=== PATIENT | female | born 1955 | race Caucasian/White ===

== ENCOUNTER → 2018-01-19 11:16 | Outpatient (CLI) | payer MEDICARE, SELFPAY ==
[2018-01-19 12:45] LABS: Rheumatoid Factor < 10.0 IU/mL (<15); Thyroid Stim Hormone (TSH) 0.94 uIU/mL (0.358-3.74)
[2018-01-19 12:48] LABS: Hemoglobin A1c 5.7 % (4.2-6.3)
[2018-01-20 09:49] LABS: Vitamin B12 591 pg/mL (211-911)
[2018-01-21 12:07] LABS: SJOGREN'S Anti-SS-A test < 0.2 AI (0.0-0.9); SJOGREN'S Anti-SS-B test < 0.2 AI (0.0-0.9)
[2018-01-21 16:06] LABS: ANTINUCLEAR ANTIBODIES DIRECT Negative (Negative)
[2018-01-22 20:08] LABS: Albumin 3.8 g/dL (2.9-4.4); Albumin, Ur 19.9 % (.); Alpha-1-Globulin, Ur 6.8 % (.); Alpha-1-Globulins 0.2 g/dL (0.0-0.4); Alpha-2-Globulins 0.8 g/dL (0.4-1.0); Alpha-2-Globulins, Ur 14.6 % (.); Beta Globulin, Ur 42.3 % (.); Cytoplasmic Ab (C-ANCA) <1:20 titer (Neg:<1:20); Gamma Globulin, Ur 16.4 % (.); Immunoglobulin A 361 mg/dL (87-352); Immunoglobulin G 1028 mg/dL (700-1600); Immunoglobulin M 47 mg/dL (26-217); M-Spike, Ur % Not Observed % (Not Observed); PROEL- TOTAL PROTEIN 7.4 g/dL (6.0-8.5); Total Protein, Ur 11.4 mg/dL (Not Estab.)
[2018-01-25 10:18] LABS: Perinuclear Ab (P-ANCA) <1:20 titer (Neg:<1:20)
== END ==
PROVIDERS: Family Provider Family Medicine; PCP Family Medicine; Visit Provider Psychiatry & Neurology Neurology
DX: E11.9 Type 2 diabetes mellitus without complications (principal); G62.9 Polyneuropathy, unspecified; M79.672 Pain in left foot; R29.898 Other symptoms and signs involving the musculoskeletal system
CPT/HCPCS: 36415; 82607; 82784; 83036; 84165; 84166; 84443; 86038; 86235; 86256; 86334; 86335; 86431

== ENCOUNTER → 2018-02-02 09:33 | Outpatient (CLI) | payer MEDICARE, SELFPAY ==
--- NOTE | 2018-02-02 06:30 | MRI_ITS ---
STUDY: MRI BRAIN WITH AND WITHOUT CONTRAST REASON FOR EXAM: Female, 62 years old. Bilateral leg weakness and right greater than left leg tingling, multiple sclerosis TECHNIQUE: Standardized multiplanar fat and water weighted pulse sequences were obtained. 7 ml of Gadavist contrast material was administered intravenously for the contrast portion of the examination. COMPARISON: None. FINDINGS: Normal size of the ventricles and extra-axial spaces for the patient's age. Normal white matter tracts of the supratentorial brain. Normal bilateral basal ganglia. Normal thalami. There is no extra-axial fluid accumulation. Normal flow voids within the major intracranial circulation suggesting patency by spin echo criteria. Normal venous enhancement. There is no enhancing intra-axial or extra-axial abnormality. Normal sella turcica, pituitary gland, infundibular stalk, optic chiasm and hypothalamus. Normal tectal plate and pineal gland. Normal midbrain, beth and medulla. Normal cerebellum. Normal basal cisterns. Normal bilateral temporal bones. Normal bilateral internal auditory canals. Bilateral lens replacements. Right sphenoid sinus disease. Normal calvarium and skull base. Normal visualized soft tissue structures. Normal visualized upper cervical spine. MRI/Brain W/WO Contrast IMPRESSION: No evidence of infarct, hemorrhage, or abnormal enhancement. No demyelinating lesions are seen. Electronically Signed: Carroll Griffith MD at 10:08 EDT Tel , Service support ,
--- NOTE | 2018-02-02 06:30 | MRI_ITS ---
STUDY: MRI CERVICAL SPINE WITH AND WITHOUT CONTRAST REASON FOR EXAM: Female, 62 years old. Bilateral leg weakness and leg tingling worse on the right TECHNIQUE: Standardized fat and water weighted pulse sequences were obtained in the sagittal and axial following I.V. administration of 7 ml of Gadavist contrast material. COMPARISON: None FINDINGS: Normal foramen magnum and brainstem-cervical cord junction. Normal craniovertebral junction. Normal anterior atlantoaxial articulation. Normal odontoid process. Normal cervical lordosis. Normal vertebral bodies and posterior osseous elements. C2-3: Normal endplates. Normal disc height, signal and morphology. Normal central canal and intervertebral neural foramina. C3-4: Normal endplates. Normal disc height, signal and morphology. Normal central canal and intervertebral neural foramina. C4-5: Normal endplates. Normal disc height, signal and morphology. Normal central canal and intervertebral neural foramina. C5-6: Normal endplates. Normal disc height, signal and morphology. Normal central canal and intervertebral neural foramina. C6-7: Disc osteophyte complex with mild central canal stenosis. C7-T1: Normal endplates. Normal disc height, signal and morphology. Normal central canal and intervertebral neural foramina. Normal cervical cord. Normal visualized soft tissue structures. MRI/Spine Cervical W/WO Contrast IMPRESSION: Degenerative disc disease at C6-7 without evidence of cord pathology or exiting nerve root impingement. No abnormal postcontrast enhancement is seen. Electronically Signed: Carroll Griffith MD at 10:06 EDT Tel , Service support ,
--- NOTE | 2018-02-02 06:30 | MRI_ITS ---
STUDY: MRI THORACIC SPINE WITH AND WITHOUT CONTRAST REASON FOR EXAM: Female, 62 years old. Bilateral leg weakness with right greater than left leg tingling TECHNIQUE: 7 ml of Gadavist was administered intravenously for the contrast portion of the examination. COMPARISON: None. FINDINGS: Normal alignment. No evidence of compression fracture. Mild diffuse spondylosis. Multiple incidental nerve root sleeve diverticula. No cord signal abnormality are seen. No abnormal intrathecal postcontrast enhancement. No evidence of nerve root impingement. Paraspinal soft tissues are unremarkable. Possible cholelithiasis. MRI/Spine Thoracic W/WO Contrast IMPRESSION: Normal alignment and mild spondylosis. No evidence of cord pathology, nerve root impingement, or abnormal postcontrast enhancement. Possible cholelithiasis. Electronically Signed: Carroll Griffith MD at 9:53 EDT Tel , Service support ,
--- NOTE | 2018-02-02 06:30 | MRI_ITS ---
STUDY: MRI LUMBAR SPINE WITHOUT CONTRAST REASON FOR EXAM: Female, 62 years old. MS, bilateral leg weakness and right greater than left leg tingling TECHNIQUE: Standardized fat and water weighted pulse sequences were obtained in the sagittal and axial planes. COMPARISON: None FINDINGS: T12-L1: Normal endplates. Normal disc height, hydration and morphology. Normal bilateral facet joints. Normal central canal and bilateral lateral recesses. Normal bilateral intervertebral neural foramina. Incidental right sided nerve root sleeve diverticulum. Normal lumbar lordosis. There is no substantial scoliosis. Normal conus medullaris that terminates at the L2 level. L1-2: Bulging annulus and central disc protrusion without compressive sequelae. L2-3: Bulging annulus without compressive sequelae. L3-4: Normal endplates. Normal disc height, hydration and morphology. Normal bilateral facet joints. Normal central canal and bilateral lateral recesses. Normal bilateral intervertebral neural foramina. L4-5: Normal endplates. Normal disc height, hydration and morphology. Normal bilateral facet joints. Normal central canal and bilateral lateral recesses. Normal bilateral intervertebral neural foramina. L5-S1: Disc desiccation. Bulging annulus and central disc protrusion with mild central canal stenosis. Incidental sacral Tarlov cyst. Normal visualized paraspinous soft tissue structures. Cholelithiasis cannot be excluded. MRI/Spine Lumbar (Routine) IMPRESSION: Mild multilevel disc disease without evidence of nerve root impingement. Possible cholelithiasis. Electronically Signed: Carroll Griffith MD at 9:49 EDT Tel , Service support ,
== END ==
PROVIDERS: Family Provider Family Medicine; PCP Family Medicine; Visit Provider Psychiatry & Neurology Neurology
DX: G35 Multiple sclerosis (principal); R29.898 Other symptoms and signs involving the musculoskeletal system
CPT/HCPCS: 70553; 72148; 72156; 72157; A9585

== ENCOUNTER → 2018-05-18 07:50 | Outpatient (CLI) | payer MEDICARE, SELFPAY ==
--- NOTE | 2018-05-18 10:57 | NEURO ---
NCS and/or EMG Patient Report Ordering Doctor: Priyanka Mcclendon DATE OF SERVICE: 05/18/18 This is a bilateral lower extremity nerve conduction study and a right lower extremity EMG performed on this 62-year-old female who says that she was diagnosed with MS approximately 19-20 years ago, this has only affected her legs however. She has had a baclofen pump placed for spasticity however she has not been on other MS medications. On examination her cranial nerves and upper extremities are normal, she has spasticity and atrophy in her lower extremities bilaterally diffusely. Bilateral lower extremity sensory and motor nerve conduction studies performed. The tibial H reflexes are suppressed bilaterally. The tibial motor and common peroneal motor F-wave latencies bilaterally are within the normal range. The common peroneal and tibial motor distal latencies are mildly prolonged with mild reduction of amplitude and mild reduction of conduction velocity. The sural sensory responses are intact. Right lower extremity needle electromyography is performed. Muscles evaluated included the extensor digitorum brevis, abductor halitosis, medial gastrocnemius, anterior tibialis, vastus lateralis and vastus medialis muscles. All muscles demonstrated normal insertional activity with absence of pathologic spontaneous activity. All muscles also demonstrated mild increase in motor unit amplitude. Impression: This is an abnormal electrophysiologic study of the lower extremities consistent with mild polyneuropathy. There is no active features.
== END ==
PROVIDERS: Family Provider Family Medicine; PCP Family Medicine; Referring Provider Psychiatry & Neurology Neurology; Visit Provider Psychiatry & Neurology Neurology
DX: R29.898 Other symptoms and signs involving the musculoskeletal system (principal)
CPT/HCPCS: 95886; 95910

== ENCOUNTER → 2018-06-23 10:31 | Outpatient (CLI) | payer MEDICARE, SELFPAY ==
[2018-06-23 12:11] LABS: Vitamin D,25 Hydroxy 19.7 ng/mL (29.95-100.01)
== END ==
PROVIDERS: Family Provider Family Medicine; PCP Family Medicine; Referring Provider Psychiatry & Neurology Neurology; Visit Provider Psychiatry & Neurology Neurology
DX: G11.4 Hereditary spastic paraplegia (principal); E55.9 Vitamin D deficiency, unspecified
CPT/HCPCS: 36415; 82306

== ENCOUNTER 2018-10-12 21:08 | Inpatient (IN) | payer MEDICARE, SELFPAY ==
[2018-10-12 21:09] VITALS: BP 157/77; PULSE 83; RESP 28; TEMP 36.4; O2SAT 99; BMI 31.5
[2018-10-12] MEDS: Ondansetron 4 MG/2 ML Vial IV (21:31)
[2018-10-12 21:32] VITALS: BP 151/81; PULSE 79; RESP 28; O2SAT 97
[2018-10-12] MEDS: morphine 8 MG/ML Syringe IV ×2 (21:32→22:33)
[2018-10-12 22:00] VITALS: BP 153/84; PULSE 79; RESP 22; O2SAT 98
--- NOTE | 2018-10-12 22:00 | RAD_ITS ---
STUDY: X-RAY - LEFT FEMUR REASON FOR STUDY: Female, 63 years old. Status post fall, pain TECHNIQUE: 5 view(s) of the femur. COMPARISON: None. FINDINGS: An acute medial angulated fracture of the distal femur with posterior displacement of the distal fragment and significant foreshortening. There is soft tissue swelling and deformity. RAD/Femur Min 2 Views IMPRESSION: Acute foreshortened comminuted fracture of the distal left femur. There is soft tissue swelling and edema. Electronically Signed: Kelly Stovall MD at 23:23 EDT Tel , Service support ,
--- NOTE | 2018-10-12 22:03 | RAD_ITS ---
STUDY: X-RAY CHEST REASON FOR EXAM: Female, 63 years old. Status post fall, fracture TECHNIQUE: Single AP portable view of the chest. Lungs are underexpanded. COMPARISON: None. FINDINGS: Underexpanded. There is limited visualization of the lung bases. There is no obvious visualized fracture. There is no demonstrated pleural abnormality. There is mild cardiac enlargement. Normal mediastinum and brock. Normal visualized pulmonary arteries. Normal visualized aortic arch and descending thoracic aorta. There are diffuse degenerative changes of the visualized thoracic spine. The visualized degenerative change of the SI joints. There is no demonstrated abnormality of the visualized soft tissue structures of the upper abdomen. RAD/Chest 1 View IMPRESSION: Underexpansion of the lungs. No visualized focal infiltrate. Electronically Signed: Kelly Stovall MD at 23:25 EDT Tel , Service support ,
[2018-10-12 22:33] LABS: Hemoglobin 13.9 g/dl (12.0-15.0); Mean Corp Hgb Conc 33.1 g/gl (32-36); Mean Corpuscular Volume 96.8 fL (81-99); Mean Platelet Vol. 9.5 fl (6.2-12.0); Platelet Count 259 K/mm3 (150-450); RBC Distribution Width CV 13.2 % (11.6-14.6); RBC Distribution Width SD 46.6 fl (35.1-43.9); Red Blood Count 4.34 M/mm3 (4.2-5.4); White Blood Count 10.9 K/mm3 (4.4-11.0)
[2018-10-12 22:35] VITALS: BP 121/65; PULSE 82; RESP 16; O2SAT 97
[2018-10-12 22:40] LABS: Anion Gap 7 (5-15); BUN 17 mg/dL (7-18); BUN/Creat Ratio 16.3 RATIO (10-20); Calcium,Total 8.3 mg/dL (8.5-10.1); Chloride 110 mmol/L (98-107); Creatinine, Serum 1.04 mg/dL (0.55-1.02); EST Glomerular Filtration Rate 57 mL/min (>60); Est Glom Filt Rate - Afr Amer 69 mL/min (>60); Estimated Creatinine Clearance 47.19 ml/min; Glucose 120 mg/dL (74-106); Potassium 3.9 mmol/L (3.5-5.1); Scan Indicated on CBC? Y/N NO; Sodium Level 141 mmol/L (136-145)
[2018-10-12 22:55] LABS: Prothrombin Time (Protime)PT. 13.1 SECONDS (11.7-14.9)
--- NOTE | 2018-10-12 22:59 | PCM.HP.STD ---
Problem List (1) Femur fracture, left Status: Acute Qualifiers: Encounter type: initial encounter Fracture morphology: comminuted History of Present Illness Date of Admission: 10/12/18 Chief Complaint: fall The patient is a 63 year old F with a significant history of multiple sclerosis and prior right lower extremity fracture with hardware who presented to the emergency department because of a fall that occurred on the same day of presentation. Patient reported that she was getting out from the toilet and because of weakness from her multiple sclerosis she fell. She reports excruciating sharp pain in the left leg. Also she reports muscle spasm in the left leg. At the emergency department x-ray showed fracture of the mid femur. Enroute to the hospital EMS placed a splint on her left lower extremity. Past Medical History Past Medical History (Chronic Problems): Chronic Problems (Last Reviewed 10/12/18 @ 23:28 by Trevor Angeles MD) Cutaneous horn (Chronic) Depression (Chronic) Osteoporosis (Chronic) Urinary incontinence (Chronic) Multiple sclerosis (Chronic) Medical History: Medical History (Last Reviewed 10/13/18 @ 06:26 by Trevor Angeles MD) Depression (Chronic) F32.9 Osteoporosis (Chronic) M81.0 Urinary incontinence (Chronic) R32 Multiple sclerosis (Chronic) G35 History of hysterectomy Z90.710 Allergies No Known Allergies Allergy (Verified 03/17/14 11:28) Home Medications: Ambulatory Orders Medication Instructions Recorded tizanidine 4 mg capsule 4 mg PO BID PRN #120 cap 04/20/18 Gabapentin [Neurontin] 300 mg PO DAILY 10/12/18 Tolterodine Tartrate [Tolterodine 4 mg PO DAILY 10/12/18 Tartrate ER] Baclofen [Lioresal Intrathecal] 10/13/18 Pramipexole Di-HCl [Mirapex] 0.5 mg PO QHS 10/13/18 Surgical History: Surgical History (Last Reviewed 10/13/18 @ 06:26 by Trevor Angeles MD) history surgery of lower extremity Rt leg, pins & rods Lives: Spouse/ Significant Other Smoking Status: Never smoker Alcohol: Occasional - *Family History Maternal Family History: Family History (Last Reviewed 10/13/18 @ 06:26 by Trevor Angeles MD) Mother Thyroid disorder Sister Thyroid disorder Paternal Family History: Family History (Last Reviewed 10/13/18 @ 06:26 by Trevor Angeles MD) Mother Thyroid disorder Sister Thyroid disorder Review of Systems Constitutional: Reports: Weakness. Denies: Chills, Fever, Weight Change HEENT: Denies: Head Aches, Sinus Congestion, Sinus Drainage Cardiovascular: Denies: Chest Pain, Palpitations Respiratory: Denies: Cough, Shortness of breath at rest, Sputum production Gastrointestinal: Denies: Abdominal Pain, Nausea, Vomiting Genitourinary: Denies: Dysuria Musculoskeletal: Reports: Leg Pain, Muscle pain. Denies: Joint Pain, Joint Tenderness Skin: Denies: Rash, Wounds Neurological: Denies: Numbness, Tingling, Focal weakness Psychiatric: Denies: Anxiety, Depression, Homicidal Ideations, Suicidal Ideations Hematologic/ Lymphatic: Denies: Easy Bruising, Easy Bleeding VTE Information - Inpt Only VTE Present on Admission: No VTE Mechan Device Prophylaxis: SCD's VTE Pharm Prophylaxis ordered?: No Patient Problems: Active and Suspected Problems (Last Reviewed 10/12/18 @ 23:28 by Trevor Angeles MD) Femur fracture, left (Acute) - Physical Exam General: Alert, Oriented x3, Cooperative HEENT: Atraumatic, PERRLA, EOMI, Normocephalic Neck: Supple, No JVD, Negative Carotid Bruits Lungs: Clear to auscultation, Normal air movement Cardiovascular: Regular rate, No murmurs Abdomen: Bowel Sounds Present, Soft, Non Tender Extremities: No edema, Capillary Refill Less than 3 Seconds Skin: No rashes, No breakdown Musculoskeletal: - - Left lower extremity in splint. Neurological: Cranial nerves II-XII grossly intact Psych/Mental Status: Normal Affect, Appropriate Vital Signs Temp Pulse Resp BP Pulse Ox 97.5 F L 83 28 H 157/77 H 99 10/12/18 21:09 10/12/18 21:09 10/12/18 21:09 10/12/18 21:09 10/12/18 21:09 Oxygen Delivery Method Room Air Weight: 83.3 kg Body Mass Index (BMI) 31.5 Laboratory Tests Past 24 Hrs 10/12/18 10/12/18 10/12/18 22:10 22:10 22:10 WBC 10.9 RBC 4.34 Hgb 13.9 Hct 42.0 MCV 96.8 MCH 32.0 MCHC 33.1 RDW 13.2 RDW Differential 46.6 H Plt Count 259 MPV 9.5 PT 13.1 INR 1.0 Sodium 141 Potassium 3.9 Chloride 110 H Carbon Dioxide 24.0 Anion Gap 7 BUN 17 Creatinine 1.04 H Estim Creat Clear Calc 47.19 Est GFR (MDRD) Af Amer 69 Est GFR (MDRD) Non-Af 57 L BUN/Creatinine Ratio 16.3 Glucose 120 H Calcium 8.3 L Blood Type Antibody Screen 10/12/18 22:10 WBC RBC Hgb Hct MCV MCH MCHC RDW RDW Differential Plt Count MPV PT INR Sodium Potassium Chloride Carbon Dioxide Anion Gap BUN Creatinine Estim Creat Clear Calc Est GFR (MDRD) Af Amer Est GFR (MDRD) Non-Af BUN/Creatinine Ratio Glucose Calcium Blood Type Pending Antibody Screen Pending Assessment/Plan All Active Problems (Last Reviewed 10/12/18 @ 23:28 by Trevor Angeles MD) Femur fracture, left (Acute) Inflamed seborrheic keratosis (Resolved) The patient is a 63 year old F with a significant history of multiple sclerosis and prior right lower extremity fracture with hardware who presented to the emergency department because of a fall and with radiographic evidence of acute foreshortened comminuted fracture of the distal left femur Acute foreshortened comminuted fracture of the distal left femur Radiograph independently reviewed shows acute Acute foreshortened comminuted fracture of the distal left femur PRN morphine for pain. PRN Toradol for pain. Her pain regimen was adjusted because of uncontrolled pain. Zofran as needed for nausea Emergency department doctor talked to Dr. Gabriel Alves, orthopedics, and he will follow patient. Orthopedic consulted. Patient has no history of cardiac disease, she has no chest pain or shortness of breath at this time. Patient is a low risk for moderate procedure. Continue immobilization of femur Multiple sclerosis Tizanidine and Neurontin continued Patient on implanted baclofen pump Tolterodine tartrate continued Restless leg Mirapex continued DVT prophylaxis SCD to right leg at this time. Consider anticoagulation after surgery. Code Visit Inpatient E&M: 90059 Init Hosp L3
--- NOTE | 2018-10-12 23:07 | ED.DCSUM_ITS ---
- ER Visit Summary Date of Service: 10/12/18 Chief Complaint: Fell in bathroom injuring left upper leg. History of Present Illness: The patient is a 63 F history of muscle spasms and prior right femur fracture with femoral mila. Patient states she was getting off the toilet and pivoting in the bathroom she fell injuring her left leg. Denies hitting her head no LOC. She is on no blood thinners. She denies any other injuries. Physical Examination: Vital signs are stable afebrile. Older female brought in by squad. Her splint on her left lower extremity. HEENT exam unremarkable. Neck nontender. Lungs clear to auscultation. Heart regular rhythm no murmur. Abdomen soft and nontender. Pelvic girdle intact. Extremities both upper and right lower extremities are nontender. Normal range of motion. Left thigh is tender to palpation. She does not remove her left leg due to pain. The lower legs nontender. She is normal DP pulse. She can wiggle her toes. She has normal touch sensation. Neurologically she is awake and alert. Test Results: X-ray of her left femur shows a midshaft left femur displaced fracture. CBC shows a white count of 10. Hemoglobin 13. Electrolytes unremarkable normal creatinine and gap. Emergency Department Course and Treatment: Patient treated with IV morphine and Zofran. Treatment Plan: I spoke to Dr. Gabriel Alves orthopedics. He will be consulted orthopedics. I have the hospitalist on page for admission. Discussed plan with family and patient. Disposition: Admission Impression: Acute fall Acute left midshaft femur fracture This note was generated with [employer] dictation software. It may contain incorrect words, spelling, and punctuation that were not noted in review of the chart prior to signing ED Disposition - Plan for ED Patient: Referrals: Aroldo Wooten, [Primary Care Provider] -
[2018-10-12 23:08] VITALS: BP 112/50; PULSE 92; RESP 18; O2SAT 96
[2018-10-12 23:44] VITALS: BP 112/50; PULSE 90; RESP 16; TEMP 36.8; O2SAT 96
--- NOTE | 2018-10-12 23:49 | ED.RN ---
after second dose of IV morphine and repositioning pt for comfort, pt finally settles down and started to doze off. O2 sats dropped to 85-88% RA, placed on 2L NC oxygen. O2 saturation increased to 95%. Pt appears drowsy yet comfortable.
[2018-10-13] VITALS (16 sets, daily range): BP systolic 95–124; BP diastolic 46–70; PULSE 73–96; RESP 14–20; TEMP 36.2–37.2; O2SAT 93–100
[2018-10-13] MEDS: Lactated Ringers 1,000 ML 75 ML IV (00:42)
[2018-10-13] MEDS: Morphine 2 MG/ML Syringe IV (00:42)
[2018-10-13] MEDS: tiZANidine HCl 2 MG Tablet 4 MG PO ×3 (00:42→22:15)
[2018-10-13] MEDS: Ketorolac 15 MG/ML Vial IV ×2 (01:20→14:46)
[2018-10-13] MEDS: Morphine 4 MG/ML Syringe 3 MG IV ×6 (02:41→20:29)
--- NOTE | 2018-10-13 05:00 | EKG12_ITS ---
Test Reason : AM EKG Blood Pressure : / mmHG Vent. Rate : 083 BPM Atrial Rate : 083 BPM P-R Int : 150 ms QRS Dur : 080 ms QT Int : 396 ms P-R-T Axes : 024 017 018 degrees QTc Int : 465 ms Normal sinus rhythm Normal ECG When compared with ECG of 14-JUN-2004 20:35, Nonspecific T wave abnormality now evident in Inferior leads Confirmed by TODD NYE, MELY ([id number]), story editor BIJAL ROUSE ([id number]) on 10/15/2018 1:56:51 PM Referred By: SUSAN Confirmed By:MELY BROOKS MD
[2018-10-13 06:13] LABS: Absolute Lymphocyte Count 3.74 X10^3/ul (0.83-4.51); Absolute Neutrophil Count 4.8 X10^3/uL (2.0-7.7); Basophil# 0.02 X10^3/uL; Basophil% 0.2 % (0-1); Eosinophil# 0.07 X10^3/uL; Eosinophils% 0.7 % (0-5); Hematocrit 38.9 % (37-47); Hemoglobin 12.4 g/dl (12.0-15.0); Lymphocyte # 3.74 X10^3/ul (4.0); Lymphocyte % 38.7 % (19-41); Mean Corp Hgb Conc 31.9 g/gl (32-36); Mean Corpuscular Hgb 31.8 pg (27.0-32.0); Mean Corpuscular Volume 99.7 fL (81-99); Mean Platelet Vol. 9.9 fl (6.2-12.0); Monocyte% 10.4 % (0-10); Neutrophil # 4.81 X10^3/uL (2.7-7.7); Neutrophil % 49.8 % (47-70); Platelet Count 253 K/mm3 (150-450); RBC Distribution Width CV 13.2 % (11.6-14.6); White Blood Count 9.7 K/mm3 (4.4-11.0)
[2018-10-13 06:18] LABS: POSITIVE COUNT NO; POSITIVE DIFFERENTIAL NO; POSITIVE MORPHOLOGY NO
[2018-10-13 06:34] LABS: Anion Gap 8 (5-15); BUN 15 mg/dL (7-18); Calcium,Total 8.1 mg/dL (8.5-10.1); Chloride 112 mmol/L (98-107); Creatinine, Serum 0.88 mg/dL (0.55-1.02); EST Glomerular Filtration Rate 69 mL/min (>60); Est Glom Filt Rate - Afr Amer 83 mL/min (>60); Estimated Creatinine Clearance 55.77 ml/min; Glucose 110 mg/dL (74-106); Potassium 4.2 mmol/L (3.5-5.1); Sodium Level 144 mmol/L (136-145)
--- NOTE | 2018-10-13 08:44 | NURSING ---
Report called to RICARDO Schultz in sx.
--- NOTE | 2018-10-13 09:30 | RAD_ITS ---
STUDY: X-RAY - LEFT FEMUR REASON FOR STUDY: Female, 63 years old. Acute spiral fracture of mid femur. TECHNIQUE: 12 intraoperative view(s) of the femur. COMPARISON: Femur, October 02, 2018. FINDINGS: The study demonstrates placement of a medullary mila through the femoral shaft with alignment of the distal diaphyseal fracture. Multiple fixation screws are seen through the upper femoral shaft and femoral condyles. Please refer to the operative report for further details. RAD/Femur Min 2 Views IMPRESSION: Surgical fixation of a femoral shaft fracture in the OR. Electronically Signed: Nilay Mann DO at 11:52 EDT Tel [phone], Service support ,
[2018-10-13] MEDS: Cefazolin 2 GM in 0.9% Normal Saline 100 ML IV (09:45)
--- NOTE | 2018-10-13 11:51 | PCM.OP.PRO ---
Procedure Report Date of Procedure: 10/13/18 Preoperative diagnosis: Comminuted left distal femoral shaft fracture Postoperative diagnosis: Same Title of operation: Retrograde left femoral nailing, reamed, locked Surgeon: Dr. Gabriel Alves Belt Cutter: Hans LAZCANO Anesthesia: General Anesthesiologist: Laura Special medications: Ancef Indications for surgery: Please refer to dictated consult note Findings: comminuted left distal femoral shaft fracture treated with [place] retrograde femoral nailing with 3 distal cross locking screws and 1 proximal cross locking screw in dynamic mode Surgical JALEESA, miller first, was utilized throughout the entire procedure. She help with patient positioning holding of limb, Bowsher for nail placement, fracture reduction, placement of guidewire, placement of cross locking screws, maintenance of fracture reduction throughout, wound closure, bandage application, patient transfer. Without certified surgical technician, surgical time would have been increased, surgical outcome could have been less optimal. Procedure: Patient was taken to the OR and transferred to the OR table. Appropriate timeouts were performed. General anesthetic was administered. IV antibiotic given. Fluoroscopy was brought in. NON Operative lower extremity had JULIA hose and SCD on throughout. Nonoperative limb was padded and taped to the bed. Operative lower extremity was prepped padded and draped in usual orthopedic sterile fashion for the procedure. Longitudinal incision was made just to the medial side of the patella coming down towards the knee joint. Full-thickness skin flaps are raised on the patellar tendon. Medial parapatellar arthrotomy carried out. Knee fluid was evacuated. Careful dissection took us to the intercondylar notch. Guidepin was placed from the distal femur into the femoral canal verified in good position under AP and lateral fluoroscopic imaging. We did ream over that with the drill. Slightly bent ball-tipped guide mila was placed from the distal femoral hole to the fracture site. Again with the help of the loan officer assistant fracture was reduced and ultimately the guide mila was placed into the proximal femur to the level of the lesser trochanter. This was verified radiographically. We measured the length of our mila. We then reamed starting with a 10 mm reamer, reaming up to size 13.5. We decided on a 12 mm nail of the appropriate length. This was placed over the guidepin with the help of the loan officer assistant. Limb was in good alignment and rotation with this. We then used the outrigger device to place our distal cross locking screws once the guide mila was removed, and we verified good position of the mila in the bone. 3 distal locking screws were placed under standard technique. Each had good position in the bone in good length and purchase. This was verified radiographically. We then did an AP cross locking screw in dynamic mode with a freehand technique. We verified the position of the screw AP and lateral x-rays. At this point we had removed the distal targeting device and placed a distal cap screw, locking it down tightly. He verified that the distal nail was not sticking out into the joint. Final set of x-rays have been taken and saved. Wounds were thoroughly irrigated. Arthrotomy was repaired with a #1 Vicryl in a [id number] fashion. Inverted 2-0 Vicryl and skin sheela then utilized. Puncture wounds closed with inverted 2-0 Vicryl and sheela. Xeroform 4 x 4's ABD applied with Stanton wrap. She was awoken from her anesthetic and transferred back to her own bed in recovery room in satisfactory condition. This note was generated with [employer] software. It may contain incorrect words, spelling, and punctuation that were not noted in checking the note before signing.
--- NOTE | 2018-10-13 11:54 | PRO.PCM_ITS ---
Procedure Report Date of Procedure: 10/13/18 Preoperative diagnosis: Comminuted left distal femoral shaft fracture Postoperative diagnosis: Same Title of operation: Retrograde left femoral nailing, reamed, locked Surgeon: Dr. Gabriel Alves Drill Instructor: Hans LAZCANO Anesthesia: General Anesthesiologist: Laura Special medications: Ancef Indications for surgery: Please refer to dictated consult note Findings: comminuted left distal femoral shaft fracture treated with [place] retrograde femoral nailing with 3 distal cross locking screws and 1 proximal cross locking screw in dynamic mode Surgical JALEESA, staff assistant, was utilized throughout the entire procedure. She help with patient positioning holding of limb, Bowsher for nail placement, fracture reduction, placement of guidewire, placement of cross locking screws, maintenance of fracture reduction throughout, wound closure, bandage application, patient transfer. Without radiology practitioner assistant, surgical time would have been increased, surgical outcome could have been less optimal. Procedure: Patient was taken to the OR and transferred to the OR table. Appropriate timeouts were performed. General anesthetic was administered. IV antibiotic given. Fluoroscopy was brought in. NON Operative lower extremity had JULIA hose and SCD on throughout. Nonoperative limb was padded and taped to the bed. Operative lower extremity was prepped padded and draped in usual orthopedic sterile fashion for the procedure. Longitudinal incision was made just to the medial side of the patella coming down towards the knee joint. Full-thickness skin flaps are raised on the patellar tendon. Medial parapatellar arthrotomy carried out. Knee fluid was evacuated. Careful di ssection took us to the intercondylar notch. Guidepin was placed from the distal femur into the femoral canal verified in good position under AP and lateral fluoroscopic imaging. We did ream over that with the drill. Slightly bent ball-tipped guide mila was placed from the distal femoral hole to the fracture site. Again with the help of the senior office assistant fracture was reduced and ultimately the guide mila was placed into the proximal femur to the level of the lesser trochanter. This was verified radiographically. We measured the length of our mila. We then reamed starting with a 10 mm reamer, reaming up to size 13.5. We decided on a 12 mm nail of the appropriate length. This was placed over the guidepin with the help of the senior office assistant. Limb was in good alignment and rotation with this. We then used the outrigger device to place our distal cross locking screws once the guide mila was removed, and we verified good position of the mila in the bone. 3 distal locking screws were placed under standard technique. Each had good position in the bone in good length and purchase. This was verified radiographically. We then did an AP cross locking screw in dynamic mode with a freehand technique. We verified the position of the screw AP and lateral x-rays. At this point we had removed the distal targeting device and placed a distal cap screw, locking it down tightly. He verified that the distal nail was not sticking out into the joint. Final set of x-rays have been taken and saved. Wounds were thoroughly irrigated. Arthrotomy was repaired with a #1 Vicryl in a [id number] fashion. Inverted 2-0 Vicryl and skin sheela then utilized. Puncture wounds closed with inverted 2-0 Vicryl and sheela. Xeroform 4 x 4's ABD applied with Stanton wrap. She was awoken from her anesthetic and transferred back to her own bed in recovery room in satisfactory condition. This note was generated with [employer] dictation software. It may contain incorrect words, spelling, and punctuation that were not noted in checking the note before signing.
--- NOTE | 2018-10-13 11:54 | PCM.CONS.GEN ---
Reason for Consult Date of Consultation: 10/13/18 History of Present Illness: The patient is a 63 year old female with a history of severe multiple sclerosis. She is basically nonambulatory. She does stand to help with transferring. She has had previous right femoral fracture treated by Dr. Garcia. Patient was at earlier this morning when she stood from the toilet twisted and her left femur broke as she fell. Was having no pain there before. Due to pain swelling and deformity she was brought to the hospital. Diagnosed with a distal femoral shaft fracture. Admitted to the medical service. Orthopedics appropriately consulted. [] Past Medical History Past Medical History (Chronic Problems): Chronic Problems (Last Reviewed 10/13/18 @ 06:26 by Trevor Angeles MD) Cutaneous horn (Chronic) Depression (Chronic) Osteoporosis (Chronic) Urinary incontinence (Chronic) Multiple sclerosis (Chronic) Medical History: Medical History (Last Reviewed 10/13/18 @ 06:26 by Trevor Angeles MD) Depression (Chronic) F32.9 Osteoporosis (Chronic) M81.0 Urinary incontinence (Chronic) R32 Multiple sclerosis (Chronic) G35 History of hysterectomy Z90.710 Allergies No Known Allergies Allergy (Verified 03/17/14 11:28) Home Medications: Ambulatory Orders Medication Instructions Recorded tizanidine 4 mg capsule 4 mg PO BID PRN #120 cap 04/20/18 Gabapentin [Neurontin] 300 mg PO DAILY 10/12/18 Tolterodine Tartrate [Tolterodine 4 mg PO DAILY 10/12/18 Tartrate ER] Baclofen [Lioresal Intrathecal] 10/13/18 Pramipexole Di-HCl [Mirapex] 0.5 mg PO QHS 10/13/18 Surgical History: Surgical History (Last Reviewed 10/13/18 @ 06:26 by Trevor Angeles MD) history surgery of lower extremity Rt leg, pins & rods Lives: Spouse/ Significant Other Smoking Status: Never smoker Alcohol: Occasional - *Family History Maternal Family History: Family History (Last Reviewed 10/13/18 @ 06:26 by Trevor Angeles MD) Mother Thyroid disorder Sister Thyroid disorder Paternal Family History: Family History (Last Reviewed 10/13/18 @ 06:26 by Trevor Angeles MD) Mother Thyroid disorder Sister Thyroid disorder Patient Problems: Active and Suspected Problems (Last Reviewed 10/13/18 @ 06:26 by Trevor Angeles MD) Femur fracture, left (Acute) Objective: Left lower extremity had a knee immobilizer extending to the upper thigh and lower leg. She could gently move the toes and ankle. She has some weakness associated with her underlying disease process. Distal pulses are intact. Right lower extremity had no pain. Left lower extremity had pain at the thigh. Vital signs and laboratory work reviewed Case had been discussed with the ER physician Complete review of systems performed with patient and her . Consistent with her multiple sclerosis and chronic lower extremity pain. Negative for any new recent changes with eyes ears nose or throat heart or lungs bowel or bladder otherwise X-rays shows a distal femoral shaft comminuted fracture displaced. Fracture does not seem to extend into the knee joint. - Physical Exam Vital Signs Temp Pulse Resp BP Pulse Ox 98.4 F 80 14 113/53 L 96 10/13/18 07:39 10/13/18 07:39 10/13/18 07:39 10/13/18 07:39 10/13/18 07:39 Oxygen Flow Rate (L/min) 2 Oxygen Delivery Method Nasal Cannula Weight: 79.379 kg Body Mass Index (BMI) 30.0 Intake and Output for Last 24 Hours 10/11/18 10/12/18 10/13/18 23:59 23:59 23:59 Output Total 1050 / 1050 Balance -1050 / -1050 Laboratory Tests Past 24 Hrs 10/12/18 10/12/18 10/12/18 22:10 22:10 22:10 WBC 10.9 RBC 4.34 Hgb 13.9 Hct 42.0 MCV 96.8 MCH 32.0 MCHC 33.1 RDW 13.2 RDW Differential 46.6 H Plt Count 259 MPV 9.5 Immature Gran % (Auto) Neut % (Auto) Lymph % (Auto) [place] % (Auto) Eos % (Auto) Baso % (Auto) Absolute Neuts (auto) Absolute Lymphs (auto) Total Counted PT 13.1 INR 1.0 Sodium 141 Potassium 3.9 Chloride 110 H Carbon Dioxide 24.0 Anion Gap 7 BUN 17 Creatinine 1.04 H Estim Creat Clear Calc 47.19 Est GFR (MDRD) Af Amer 69 Est GFR (MDRD) Non-Af 57 L BUN/Creatinine Ratio 16.3 Glucose 120 H Calcium 8.3 L Blood Type Antibody Screen 10/12/18 10/13/18 10/13/18 22:10 05:30 05:30 WBC 9.7 RBC 3.90 L Hgb 12.4 Hct 38.9 MCV 99.7 H MCH 31.8 MCHC 31.9 L RDW 13.2 RDW Differential 47.0 H Plt Count 253 MPV 9.9 Immature Gran % (Auto) 0.200 Neut % (Auto) 49.8 Lymph % (Auto) 38.7 [place] % (Auto) 10.4 H Eos % (Auto) 0.7 Baso % (Auto) 0.2 Absolute Neuts (auto) 4.8 Absolute Lymphs (auto) 3.74 Total Counted Not Reportable PT INR Sodium 144 Potassium 4.2 Chloride 112 H Carbon Dioxide 24.0 Anion Gap 8 BUN 15 Creatinine 0.88 Estim Creat Clear Calc 55.77 Est GFR (MDRD) Af Amer 83 Est GFR (MDRD) Non-Af 69 BUN/Creatinine Ratio 17.0 Glucose 110 H Calcium 8.1 L Blood Type O POSITIVE Antibody Screen NEGATIVE Assessment/Plan All Active Problems (Last Reviewed 10/13/18 @ 06:26 by Trevor Angeles MD) Femur fracture, left (Acute) Inflamed seborrheic keratosis (Resolved) Left distal femoral shaft fracture. Diagnosis and treatment options discussed with patient and her . They would like to proceed with surgical internal fixation, retrograde femoral nailing. Risk of surgery including but not limited to from operative or postoperative complications. Risk of anesthetic complications such as heart attacks, strokes, seizures, or . Risk of infections. Risk of damage to nerves arteries tendons. Risk of inadvertent fractures or dislocations. Risk of bone or wound healing complications. Possibility of nonunion malunion pain stiffness weakness. Possible need for further surgery such as hardware removal. Risk of DVT PE and other potential complications could lead to or disability explained. No guarantees were stated or implied. All of their questions were answered. Appropriate informed consent was obtained and signed for surgical intervention. Ancef will be used for perioperative antibiotic. We will plan on Xarelto for postoperative DVT prevention. Continue medical evaluation and treatment of other underlying conditions per hospitalist service This note was generated with [employer] software. It may contain incorrect words, spelling, and punctuation that were not noted in checking the note before signing.
--- NOTE | 2018-10-13 13:38 | PN_ITS ---
Patient Problems: Active and Suspected Problems (Last Reviewed 10/13/18 @ 06:26 by Trevor Angeles MD) Femur fracture, left (Acute) Subjective: Patient was taken for left femur fracture ORIF in the OR in the morning. Patient was seen and examined in PACU. Anesthesiologist called me that patient is not able to flex right hip or right knee after surgery. Patient can wiggle toes of both lower extremity. Left lower extremity is in immobilizer. As per the anesthesiologist, Dr. Alves thinks it is not positional during surgery Discussed with the neurologist Dr. Mcclendon. Patient has history of MS for [address] Mackenzie for baclofen pump refill. Patient baseline physical status is wheelchair-bound. Patient does not uses walker. As per the patient, Dr. Mackenzie refills her baclofen pain pump but she has not seen him physically recently for 3 years Vitals/I&O's: Vital Signs Temp Pulse Resp BP Pulse Ox 97.1 F L 73 16 100/50 L 96 10/13/18 12:04 10/13/18 13:15 10/13/18 13:15 10/13/18 13:15 10/13/18 13:15 Oxygen Flow Rate (L/min) 3 Oxygen Delivery Method Nasal Cannula Weight: 175 lb Body Mass Index (BMI) 30.0 Intake and Output for Last 24 Hours 10/11/18 10/12/18 10/13/18 23:59 23:59 23:59 Output Total 1050 / 1050 Balance -1050 / -1050 General: Alert, Oriented x3, Cooperative HEENT: Atraumatic, PERRLA, EOMI, Normocephalic Oral: Dry Mucosa Neck: Supple, No JVD, Negative Carotid Bruits Lungs: Clear to auscultation, No rhonchi, No wheeze, No rales, Diminished - Air entry is diminished in both lung bases Cardiovascular: Regular rate, Regular Rhythm, Normal S1, Normal S2, No murmurs Abdomen: Bowel Sounds Present, Soft, Non Tender, Non-Distended Extremities: Capillary Refill Less than 3 Seconds, Edema, Tenderness - Left lower extremity in immobilizer. Surgical dressing and Stanton wrap bandage present. Skin: No rashes, No breakdown Musculoskeletal: Arthritic Changes, Muscle Wasting, Tenderness Lymphatic: No Cervical, Supraclavicular, or Inguinal Adenopathy Neurological: Cranial nerves II-XII grossly intact, - - Chronic bilateral lower extremity weakness. Wheelchair-bound. Patient can wiggle toes. DTRs hyporeflexive, 1+. Right lower extremity not able to flex at hip or knee joints. Power is 1-2/5 at the major joints and right lower extremity Psych/Mental Status: Normal Affect, Appropriate Laboratory Results 10/12/18 22:10: WBC 10.9, RBC 4.34, Hgb 13.9, Hct 42.0, MCV 96.8, MCH 32.0, MCHC 33.1, RDW 13.2, RDW Differential 46.6 H, Plt Count 259, MPV 9.5 10/12/18 22:10: PT 13.1, INR 1.0 10/12/18 22:10: Sodium 141, Potassium 3.9, Chloride 110 H, Carbon Dioxide 24.0, Anion Gap 7, BUN 17, Creatinine 1.04 H, Estim Creat Clear Calc 47.19, Est GFR (MDRD) Af Amer 69, Est GFR (MDRD) Non-Af 57 L, BUN/Creatinine Ratio 16.3, Glucose 120 H, Calcium 8.3 L 10/12/18 22:10: Blood Type O POSITIVE, Antibody Screen NEGATIVE 10/13/18 05:30: WBC 9.7, RBC 3.90 L, Hgb 12.4, Hct 38.9, MCV 99.7 H, MCH 31.8, MCHC 31.9 L, RDW 13.2, RDW Differential 47.0 H, Plt Count 253, MPV 9.9, Immature Gran % (Auto) 0.200, Neut % (Auto) 49.8, Lymph % (Auto) 38.7, [place] % (Auto) 10.4 H, Eos % (Auto) 0.7, Baso % (Auto) 0.2, Absolute Neuts (auto) 4.8, Absolute Lymphs (auto) 3.74, Total Counted Not Reportable 10/13/18 05:30: Sodium 144, Potassium 4.2, Chloride 112 H, Carbon Dioxide 24.0, Anion Gap 8, BUN 15, Creatinine 0.88, Estim Creat Clear Calc 55.77, Est GFR (MDRD) Af Amer 83, Est GFR (MDRD) Non-Af 69, BUN/Creatinine Ratio 17.0, Glucose 110 H, Calcium 8.1 L Current Medications Acetaminophen (Tylenol) 650 mg PO Q6H PRN PRN PRN Reason: PAIN Duloxetine HCl (Cymbalta) 30 mg PO DAILY [facility] Gabapentin (Neurontin) 300 mg PO DAILYCM [facility] Cefazolin Sodium () 1 gm in 50 mls @ 150 mls/hr IV Q6H DAISY Stop: 10/14/18 04:19 Ketorolac Tromethamine (Toradol) 15 mg IV Q6H PRN PRN PRN Reason: PAIN Stop: 10/18/18 00:36 Last Admin: 10/13/18 01:20 Dose: 15 mg Magnesium Hydroxide (Milk Of Magnesia) 30 ml PO DAILY PRN PRN PRN Reason: Constipation Morphine Sulfate () 3 mg IV Q2H PRN PRN PRN Reason: SEVERE PAIN (6-10/10) Last Admin: 10/13/18 09:11 Dose: 3 mg Ondansetron HCl (Zofran) 4 mg IV Q6H PRN PRN PRN Reason: NAUSEA/VOMITING Pramipexole Dihydrochloride (Mirapex) 0.5 mg PO DAILY@2200 [facility] Rivaroxaban (Xarelto) 10 mg PO DAILY@0600 [facility] Sodium Chloride () 5 - 15 ml IV UD PRN PRN Reason: SALINE FLUSH Tizanidine HCl (Zanaflex) 4 mg PO BID PRN PRN PRN Reason: muscle spasticity Last Admin: 10/13/18 00:42 Dose: 4 mg Tolterodine Tartrate (Detrol La) 4 mg PO DAILY [facility] Medical Necessity - Tobacco Use Smoking Status: Never smoker Assessment/Plan All Active Problems (Last Reviewed 10/13/18 @ 06:26 by Trevor Angeles MD) Femur fracture, left (Acute) Inflamed seborrheic keratosis (Resolved) The patient is a 63 year old F with a significant history of multiple sclerosis and prior right lower extremity fracture with hardware who [facility] she had a fall and with radiographic evidence of acute foreshortened comminuted fracture of the distal left femur. Patient has MS for last 19 years and is wheelchair-bound. 1. Acute foreshortened comminuted fracture of the distal left femur shaft with postoperative weakness of right lower extremity with baseline paraparesis secondary to MS: X-ray shows acute foreshortened comminuted fracture of the distal left femur. Patient was treated with morphine and Toradol as needed. Orthopedic surgeon Dr. Alves was consulted. Patient had retrograde left femoral nailing, reamed and locked. Postoperatively in PACU, patient felt weakness of right lower extremity not able to flex at hip and knee joints. Discussed with the patient about the baseline. Patient follows Dr. Mackenzie for baclofen pump refill. Patient baseline physical status is wheelchair-bound. Patient does not uses walker. As per the patient, Dr. Mackenzie refills her baclofen pain pump but she has not seen him physically recently for 3 years. Discussed with the neurologist Dr. Mcclendon and he thinks it is mainly positional and anesthetic medications. Patient had Precedex, fentanyl, D ilaudid, Versed and propofol anesthetic agents. Discussed with anesthesiologist. Physical therapy. Wait and watch. Hold baclofen pain pump. 2. Multiple sclerosis with paraparesis: As mentioned above patient baseline is wheelchair bound. I did not assess preoperative muscle strength of right lower extremity and patient was in OR in art therapist. Patient is not on MS specific medication but gabapentin, pramipexole and tizanidine as needed. On baclofen pain pump. 3. Restless leg Mirapex continued DVT prophylaxis SCD to right leg at this time. On Xarelto 10 mg daily. Management discussed with the patient in PACU. Code Visit Inpatient E&M: [id number] [place] [id number]
[2018-10-13] MEDS: DULoxetine Hcl 30 MG Capsule PO (15:29)
[2018-10-13] MEDS: Tolterodine Tartrate 4 MG CAP.SA PO (15:29)
[2018-10-13] MEDS: Gabapentin 300 MG Capsule PO (15:29)
--- NOTE | 2018-10-13 15:58 | NURSING ---
[employer] CALLED IN REGARD OF BACLOFEN PUMP PER MD REQUEST TO VERIFY PUMP IS ON. PER [employer], LOCAL REP PAGED TO COME INTERROGATE JIGNESH.
--- NOTE | 2018-10-13 16:07 | NURSING ---
BRAXTON, LOCAL [employer] AGENT, CALLED REGARDING BACLOFEN PUMP. PER BRAXTON, ONLY WAY PUMP IS TURNED OFF WOULD BE BY MRI. PT DID NOT RECEIVE MRI WITH THIS ADMISSION. BRAXTON STATES IF FAMILY HAS ANY FURTHER QUESTIONS, WOULD NEED TO CONTACT MD REGULATING PUMP. WILL RELAY INFORMATION TO FAMILY/PATIENT.
[2018-10-13] MEDS: Cefazolin 1 GM/50 ML BAG IV ×2 (16:36→22:15)
[2018-10-13] MEDS: Acetaminophen 325 MG Tablet 650 MG PO (18:38)
[2018-10-13] MEDS: Pramipexole Di-HCl 0.5 MG Tablet PO (22:15)
[2018-10-14] MEDS: Morphine 4 MG/ML Syringe 3 MG IV ×3 (02:11→15:10)
[2018-10-14] MEDS: Ketorolac 15 MG/ML Vial IV ×3 (02:26→16:43)
[2018-10-14] MEDS: Cefazolin 1 GM/50 ML BAG IV (05:06)
[2018-10-14] MEDS: Rivaroxaban 10 MG Tablet PO (05:07)
[2018-10-14 05:32] LABS: Hematocrit 35.1 % (37-47); Hemoglobin 10.9 g/dl (12.0-15.0); Mean Corp Hgb Conc 31.1 g/gl (32-36); Mean Corpuscular Hgb 31.8 pg (27.0-32.0); Mean Corpuscular Volume 102.3 fL (81-99); Mean Platelet Vol. 9.5 fl (6.2-12.0); Platelet Count 204 K/mm3 (150-450); RBC Distribution Width CV 13.2 % (11.6-14.6); RBC Distribution Width SD 48.8 fl (35.1-43.9); Red Blood Count 3.43 M/mm3 (4.2-5.4)
[2018-10-14 05:34] LABS: Scan Indicated on CBC? Y/N NO
[2018-10-14 05:57] LABS: Anion Gap 5 (5-15); BUN 8 mg/dL (7-18); BUN/Creat Ratio 9.8 RATIO (10-20); Calcium,Total 7.7 mg/dL (8.5-10.1); Chloride 109 mmol/L (98-107); Creatinine, Serum 0.81 mg/dL (0.55-1.02); EST Glomerular Filtration Rate 75 mL/min (>60); Est Glom Filt Rate - Afr Amer 91 mL/min (>60); Estimated Creatinine Clearance 60.59 ml/min; Glucose 118 mg/dL (74-106); Potassium 4.4 mmol/L (3.5-5.1); Sodium Level 141 mmol/L (136-145)
[2018-10-14 07:05] VITALS: O2SAT 96
[2018-10-14 08:30] VITALS: BP 99/54; PULSE 88; RESP 16; TEMP 36.8; O2SAT 96
[2018-10-14] MEDS: DULoxetine Hcl 30 MG Capsule PO (08:34)
[2018-10-14] MEDS: Tolterodine Tartrate 4 MG CAP.SA PO (08:34)
[2018-10-14] MEDS: Gabapentin 300 MG Capsule PO (08:34)
[2018-10-14] MEDS: tiZANidine HCl 2 MG Tablet 4 MG PO ×2 (08:45→16:43)
--- NOTE | 2018-10-14 10:30 | CASEMGMT ---
RICARDO OSEI Face to Face with patient for initial transition planning/care coordination assessment. RICARDO OSEI introduced self and role at [facility]. Patient lying in bed, alert and oriented, at bedside. Patient willing to participate in assessment and is able to answer all questions appropriately. Care providers, pharmacy, and demographics verified. Patient wishes to discharge to SNF with [facility] as their first choice. RICARDO OSEI provided list of SNFs that are in-network with patient's insurance and asked for 2 more SNF choices should TCU not be available. Patient states she has no further needs or concerns at this time. MARIANNE Haro updated regarding requests for SNF and TCU being first choice. PCP: Aroldo Wooten Specialists: Demetri, back pain specialist for Baclofen pump; [place] neurologist Preferred Pharmacy: [facility] Insurance: [employer] [facility] Prescription Benefit: yes Living Will/HPOA: yes [place] Abad LNOK: Living Arrangements: Patient lives with in 2 story home with bedroom on second floor and bath on first floor. Patietn is independent with self care, assists at times. Transportation: , family DME/HHC: Patient has tub bench, raised toilet seat, lift chair, grab bars, walker, wheelchair, stair lift at home. Patient has previously been to [facility], denies any recent HHC but had it 14 years ago. Disposition Plan: Patient to discharge to SNF pending precert. Rayne TOMPKINS, RN, CM
--- NOTE | 2018-10-14 11:06 | CASEMGMT ---
Social Work Note RN SEA Umanzor updated this worker that pt's first choice for SNF is TCU. SW placed a call to Ayala with TCU/[facility]. Ayala states TCU is not in network with pt's insurance. SW to follow up with pt today to determine pt's second choice for SNF. Plan: SNF pending acceptance and pre-cert Rayne Haro HOUSE WORKER, CAR DESIGNER
[2018-10-14] MEDS: Acetaminophen 325 MG Tablet 650 MG PO (11:32)
--- NOTE | 2018-10-14 12:07 | CASEMGMT ---
Addendum entered by Rayne Haro 10/14/18 13:46: SW checked back in with pt and pt's in regards to SNF placement. Pt states that her left to go visit nursing homes. SW informed pt that this worker will check back in with pt before this worker leaves to see if pt's is back at [facility] and has options for SNF. Pt states understanding. Original Note: Social Work Note SW updated pt and pt's Carroll that TCU is not in network with pt's insurance. Pt and Carroll encouraged to continue to review list to determine second and third choice for SNF. SW provided pt and Carroll with Medicare ratings. SW informed pt and Carroll that this worker will check back in later today in regards to options for SNF. Plan: SNF pending acceptance and pre-cert Rayne Haro SILVERWARE CLEANER, AIRLINE COUNTER AGENT
--- NOTE | 2018-10-14 12:38 | PCM.PN.HOSP ---
Patient Problems: Active and Suspected Problems (Last Reviewed 10/13/18 @ 06:26 by Trevor Angeles MD) Femur fracture, left (Acute) Leg weakness (Acute) Subjective: Patient has chronic bilateral lower extremity weakness, paraplegia on wheelchair. No improvement in right leg flexion. Patient stated usually she can move her lower extremities horizontally on bed. She was able to stand up with with weight put on walker or toilet bar Vitals/I&O's: Vital Signs Temp Pulse Resp BP Pulse Ox 98.3 F 88 16 99/54 L 96 10/14/18 08:30 10/14/18 08:30 10/14/18 08:30 10/14/18 08:30 10/14/18 08:30 Oxygen Flow Rate (L/min) 2 Oxygen Delivery Method Nasal Cannula Weight: 175 lb Body Mass Index (BMI) 30.0 Intake and Output for Last 24 Hours 10/12/18 10/13/18 10/14/18 23:59 23:59 23:59 Intake Total 2213.4 / 2213.4 856 / 856 Output Total 1974 1200 / 1200 Balance 238.4 / 238.4 -344 / -344 General: Alert, Oriented x3, Cooperative HEENT: Atraumatic, PERRLA, EOMI, Normocephalic Neck: Supple, No JVD, Negative Carotid Bruits Lungs: Clear to auscultation, No rhonchi, No wheeze, No rales, Diminished Cardiovascular: Regular rate, Regular Rhythm, Normal S1, Normal S2, No murmurs Abdomen: Bowel Sounds Present, Soft, Non Tender, Non-Distended Extremities: No edema, Capillary Refill Less than 3 Seconds Skin: No rashes, No breakdown Musculoskeletal: Arthritic Changes, Muscle Wasting, Tenderness - Left lower extremity has surgical dressing with Stanton wrap bandage. Lymphatic: No Cervical, Supraclavicular, or Inguinal Adenopathy Neurological: Cranial nerves II-XII grossly intact, - - Chronic bilateral lower extremity weakness. Wheelchair-bound. Patient can wiggle toes. DTRs hyporeflexive, 1+. Right lower extremity not able to flex at hip or knee joints. Power is 1-2/5 at the major joints and right lower extremity. Left lower extremity immobilized after surgery Psych/Mental Status: Normal Affect, Appropriate Laboratory Results 10/14/18 05:22: WBC 9.0, RBC 3.43 L, Hgb 10.9 L, Hct 35.1 L, MCV 102.3 H, MCH 31.8, MCHC 31.1 L, RDW 13.2, RDW Differential 48.8 H, Plt Count 204, MPV 9.5 10/14/18 05:22: Sodium 141, Potassium 4.4, Chloride 109 H, Carbon Dioxide 27.0, Anion Gap 5, BUN 8, Creatinine 0.81, Estim Creat Clear Calc 60.59, Est GFR (MDRD) Af Amer 91, Est GFR (MDRD) Non-Af 75, BUN/Creatinine Ratio 9.8 L, Glucose 118 H, Calcium 7.7 L Current Medications Acetaminophen (Tylenol) 650 mg PO Q6H PRN PRN PRN Reason: PAIN Last Admin: 10/14/18 11:32 Dose: 650 mg Duloxetine HCl (Cymbalta) 30 mg PO DAILY [facility] Last Admin: 10/14/18 08:34 Dose: 30 mg [facility] Admin: 10/14/18 08:34 Dose: 300 mg Ketorolac Tromethamine (Toradol) 15 mg IV Q6H PRN PRN PRN Reason: PAIN Stop: 10/18/18 00:36 Last Admin: 10/14/18 08:34 Dose: 15 mg Magnesium Hydroxide (Milk Of Magnesia) 30 ml PO DAILY PRN PRN PRN Reason: Constipation Morphine Sulfate () 3 mg IV Q2H PRN PRN PRN Reason: SEVERE PAIN (6-10/10) Last Admin: 10/14/18 05:51 Dose: 3 mg Ondansetron HCl (Zofran) 4 mg IV Q6H PRN PRN PRN Reason: NAUSEA/VOMITING Oxycodone HCl (Oxyir) 5 mg PO Q4H PRN PRN PRN Reason: SEVERE PAIN (6-10/10) Pramipexole Dihydrochloride (Mirapex) 0.5 mg PO DAILY@2200 [facility] Last Admin: 10/13/18 22:15 Dose: 0.5 mg Rivaroxaban (Xarelto) 10 mg PO DAILY@0600 [facility] Last Admin: 10/14/18 05:07 Dose: 10 mg Sodium Chloride () 5 - 15 ml IV UD PRN PRN Reason: SALINE FLUSH Tizanidine HCl (Zanaflex) 4 mg PO BID PRN PRN PRN Reason: muscle spasticity Last Admin: 10/14/18 08:45 Dose: 4 mg Tolterodine Tartrate (Detrol La) 4 mg PO DAILY [facility] Last Admin: 10/14/18 08:34 Dose: 4 mg Medical Necessity - Tobacco Use Smoking Status: Never smoker Assessment/Plan All Active Problems (Last Reviewed 10/13/18 @ 06:26 by Trevor Angeles MD) Femur fracture, left (Acute) Leg weakness (Acute) Inflamed seborrheic keratosis (Resolved) The patient is a 63 year old F with a significant history of multiple sclerosis and prior right lower extremity fracture with hardware who [facility] after she had a trivial fall from walker and with radiographic evidence of acute foreshortened comminuted fracture of the distal left femur. Patient has MS for last 19 years and is wheelchair-bound. 1. 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 Patient was treated with morphine and Toradol as needed. Orthopedic surgeon Dr. Alves was consulted. Patient had retrograde left femoral nailing, reamed and locked. Postoperatively in PACU, patient felt weakness of right lower extremity not able to flex at hip and knee joints. Patient follows Dr. Mackenzie for baclofen pump refill. Discussed with the neurologist, Dr. Mcclendon. He put an order for MRI C-spine and lumbar spine. Patient had nerve conduction studies in April 2018 which was reported as mild polyneuropathy with absence of pathology for spontaneous activity. She does not have MS that she had extensive workup by Dr. Mcclendon including MRI brain, cervical thoracic and lumbar spine MRI in January 2018. Currently on Zanaflex. Physical therapy. Wait and watch. Hold baclofen pain pump. 2. Spastic paraplegia : As mentioned above patient baseline is wheelchair bound. Continue gabapentin, pramipexole and tizanidine as needed. Patient refills baclofen pump from Dr. Mackenzie. 3. Restless leg Mirapex continued DVT prophylaxis SCD to right leg at this time. On Xarelto 10 mg daily. Clinical evaluation, findings and management discussed with the patient and her near the bedside. Code Visit Inpatient E&M: 84045 Subs Hosp L2
[2018-10-14 13:59] VITALS: BP 104/51; PULSE 82; RESP 16; TEMP 37; O2SAT 96
[2018-10-14] MEDS: oxyCODONE 5 MG Tablet PO ×2 (14:03→21:46)
--- NOTE | 2018-10-14 15:00 | CASEMGMT ---
Social Work Note SW spoke with pt and pt's Carroll regarding SNF. Carroll states he would like referral sent to [facility], pt agreeable to referral. SW explained referral and pre-cert process. Pt and Carroll state understanding. MARIANNE placed a call to Lana at [facility] and faxed referral. Lana left this worker a message stating she is able to accept and will submit for pre-cert. Plan: [facility] pending pre-cert Rayne Haro MSW, STEAM CRANE OPERATOR
--- NOTE | 2018-10-14 15:00 | PCM.CONS.GEN ---
Problem List (1) Spastic paraparesis Status: Chronic (2) Leg weakness Status: Acute Reason for Consult Date of Consultation: 10/14/18 Reason for Consultation: Leg weakness post surgery. History of Present Illness: The patient is a 63 year old F PMH RLS, spastic paraparesis, neuropathy admitted status post fall found to have left distal femoral shaft fracture status post retrograde left femoral nailing, ORIF by Dr. Alves on 10/13/2018 following which it was documented that patient was unable to flex right hip or knee after surgery. Neurology consulted for this lower extremity weakness. Patient is known to me from outpatient follow-up. At baseline patient is wheelchair-bound. Patient at baseline is a poor historian, she initially saw me stating that she has MS and was diagnosed by Dr. Rene. But MRI brain with and without contrast, MRI C-spine with and without contrast and MRI T-spine with and without contrast done on February 02, 2018 did not report to show any demyelinating or enhancing lesions suggestive of MS. During the office visit it was documented patient has spasticity in both lower extremities and was probably not able to move the lower extremities. Patient has a baclofen pump and is being refilled by Dr. Mackenzie. At present patient denies any new onset of sensory loss, has vera catheter in place, denies any bowel incontinence. She denies any new onset of neck pain or low back pain, denies any radicular symptoms. Denies any weakness in the arms, denies any headache dizziness visual disturbance speech disturbances or headache. [] Past Medical History Past Medical History (Chronic Problems): Chronic Problems (Last Reviewed 10/13/18 @ 06:26 by Trevor Angeles MD) Spastic paraparesis (Chronic) Cutaneous horn (Chronic) Depression (Chronic) Osteoporosis (Chronic) Urinary incontinence (Chronic) Multiple sclerosis (Chronic) Medical History: Medical History (Last Reviewed 10/13/18 @ 06:26 by Trevor Angeles MD) Depression (Chronic) F32.9 Osteoporosis (Chronic) M81.0 Urinary incontinence (Chronic) R32 Multiple sclerosis (Chronic) G35 History of hysterectomy Z90.710 Allergies No Known Allergies Allergy (Verified 03/17/14 11:28) Home Medications: Ambulatory Orders Medication Instructions Recorded tizanidine 4 mg capsule 4 mg PO BID PRN #120 cap 04/20/18 Gabapentin [Neurontin] 300 mg PO DAILY 10/12/18 Tolterodine Tartrate [Tolterodine 4 mg PO DAILY 10/12/18 Tartrate ER] Baclofen [Lioresal Intrathecal] 10/13/18 Pramipexole Di-HCl [Mirapex] 0.5 mg PO QHS 10/13/18 Surgical History: Surgical History (Last Reviewed 10/13/18 @ 06:26 by Trevor Angeles MD) history surgery of lower extremity Rt leg, pins & rods Lives: Spouse/ Significant Other Smoking Status: Never smoker Alcohol: Occasional - *Family History Maternal Family History: Family History (Last Reviewed 10/13/18 @ 06:26 by Trevor Angeles MD) Mother Thyroid disorder Sister Thyroid disorder Paternal Family History: Family History (Last Reviewed 10/13/18 @ 06:26 by Trevor Angeles MD) Mother Thyroid disorder Sister Thyroid disorder Review of Systems Constitutional: Reports: - - complete ROS negative except as documented in HPI Patient Problems: Active and Suspected Problems (Last Reviewed 10/13/18 @ 06:26 by Trevor Angeles MD) Femur fracture, left (Acute) Leg weakness (Acute) - Physical Exam General: Alert HEENT: Normocephalic Neck: Supple Lungs: Normal air movement Cardiovascular: Normal S1, Normal S2 Abdomen: Bowel Sounds Present Extremities: No cyanosis Neurological: - - consious, alert, CN 2-12 groslly intact, power B/L UE 5/5, B/L LE-increase tone, is able to move her toes, plantars right equivocal, left flexor, no sensory loss, no cerebellar signs, Reflexes + B/L B/S/T/K/A, gait could not be assessed Psych/Mental Status: Normal Affect Vital Signs Temp Pulse Resp BP Pulse Ox 98.6 F 82 16 104/51 L 96 10/14/18 13:59 10/14/18 13:59 10/14/18 13:59 10/14/18 13:59 10/14/18 13:59 Oxygen Flow Rate (L/min) 2 Oxygen Delivery Method Nasal Cannula Weight: 79.379 kg Body Mass Index (BMI) 30.0 Intake and Output for Last 24 Hours 10/12/18 10/13/18 10/14/18 23:59 23:59 23:59 Intake Total 2213.4 / 2213.4 1224 / 1224 Output Total 1974 1300 / 1300 Balance 238.4 / 238.4 -76 / -76 Laboratory Tests Past 24 Hrs 10/14/18 10/14/18 05:22 05:22 WBC 9.0 RBC 3.43 L Hgb 10.9 L Hct 35.1 L MCV 102.3 H MCH 31.8 MCHC 31.1 L RDW 13.2 RDW Differential 48.8 H Plt Count 204 MPV 9.5 Sodium 141 Potassium 4.4 Chloride 109 H Carbon Dioxide 27.0 Anion Gap 5 BUN 8 Creatinine 0.81 Estim Creat Clear Calc 60.59 Est GFR (MDRD) Af Amer 91 Est GFR (MDRD) Non-Af 75 BUN/Creatinine Ratio 9.8 L Glucose 118 H Calcium 7.7 L Assessment/Plan All Active Problems (Last Reviewed 10/13/18 @ 06:26 by Trevor Angeles MD) Femur fracture, left (Acute) Leg weakness (Acute) Inflamed seborrheic keratosis (Resolved) The patient is a 63 year old F PMH RLS, spastic paraparesis, neuropathy admitted status post fall found to have left distal femoral shaft fracture status post retrograde left femoral nailing, ORIF by Dr. Alves on 10/13/2018 following which it was documented that patient was unable to flex right hip or knee after surgery. Neurology consulted for this lower extremity weakness. Patient is known to me from outpatient follow-up. At baseline patient is wheelchair-bound. Patient at baseline is a poor historian, she initially saw me stating that she has MS and was diagnosed by Dr. Rene. But MRI brain with and without contrast, MRI C-spine with and without contrast and MRI T-spine with and without contrast done on February 02, 2018 did not report to show any demyelinating or enhancing lesions suggestive of MS. During the office visit it was documented patient has spasticity in both lower extremities and was probably not able to move the lower extremities. Patient has a baclofen pump and is being refilled by Dr. Mackenzie. At present patient denies any new onset of sensory loss, has vera catheter in place, denies any bowel incontinence. She denies any new onset of neck pain or low back pain, denies any radicular symptoms. Denies any weakness in the arms, denies any headache dizziness visual disturbance speech disturbances or headache. Impression H/O Spastic paraparesis ? right LE weakness following surgery for left femur fracture and ORIF Plan ?Check MRI C-spine and MRI L-spine without contrast if there is no contraindication to MRI post surgery ?PT/OT ?EMG/nerve conduction done on 04/3020 reported to show mild neuropathy in bilateral lower extremities. If neuroimaging is negative then may need a repeat EMG/nerve conduction of both lower extremities as outpatient. ?Based on the MRI brain, MRI C-spine and MRI thoracic spine done on January 2018 patient likely does not have any demyelinating or enhancing lesions suggestive of MS ?Check UA ?HTLV-I/2 antibodies reported negative in the past. ?Fall precautions ?Further medical management per hospitalist team ?Please call with questions if any. ?Follow-up with neurology as outpatient in 6 weeks ?Thank you for allowing us to participate in patient's care and management. Code Visit Inpatient E&M: 34105 Init Hosp L3
--- NOTE | 2018-10-14 17:05 | PCM.PN.ORT ---
Patient Problems: Active and Suspected Problems (Last Reviewed 10/13/18 @ 06:26 by Trevor Angeles MD) Femur fracture, left (Acute) Leg weakness (Acute) Subjective: Patient is postoperative day #1 from left distal femoral fracture internal fixation with retrograde intramedullary nailing. She denies severe pain. Pain controlled with medication. Denies chest pain or shortness of breath. [place] catheter has been removed today. She has been evaluated by neurology. MRI pending. Patient is hoping for transfer to [facility] soon. Arrangements being made. She understands not to put weight on her left leg. Her left lower extremity knee immobilizer can be used on an as-needed basis. If she is more comfortable without it we can discontinue it. Objective: Patient seen with her present. Left lower extremity braces on and fitting well. Stanton wrap is on an fitting well. No blood on the bandage. Proximal screw site also has a small bandage without signs of bleeding. No calf pain bilaterally. Active plantar flexion dorsiflexion toes and ankles normal for her. Somewhat limited. Clinically legs are well aligned. Vital signs and laboratory work reviewed. Notes from hospitalist reviewed - Physical Exam Vital Signs Temp Pulse Resp BP Pulse Ox 98.6 F 82 16 104/51 L 96 10/14/18 13:59 10/14/18 13:59 10/14/18 13:59 10/14/18 13:59 10/14/18 13:59 Oxygen Flow Rate (L/min) 2 Oxygen Delivery Method Nasal Cannula Weight: 79.379 kg Body Mass Index (BMI) 30.0 Intake and Output for Last 24 Hours 10/12/18 10/13/18 10/14/18 23:59 23:59 23:59 Intake Total 2213.4 / 2213.4 1224 / 1224 Output Total 1974 / 1974 1300 / 1300 Balance 238.4 / 238.4 -76 / -76 Laboratory Tests Past 24 Hrs 10/14/18 10/14/18 05:22 05:22 WBC 9.0 RBC 3.43 L Hgb 10.9 L Hct 35.1 L MCV 102.3 H MCH 31.8 MCHC 31.1 L RDW 13.2 RDW Differential 48.8 H Plt Count 204 MPV 9.5 Sodium 141 Potassium 4.4 Chloride 109 H Carbon Dioxide 27.0 Anion Gap 5 BUN 8 Creatinine 0.81 Estim Creat Clear Calc 60.59 Est GFR (MDRD) Af Amer 91 Est GFR (MDRD) Non-Af 75 BUN/Creatinine Ratio 9.8 L Glucose 118 H Calcium 7.7 L Medical Necessity - Tobacco Use Smoking Status: Never smoker Assessment/Plan All Active Problems (Last Reviewed 10/13/18 @ 06:26 by Trevor Angeles MD) Femur fracture, left (Acute) Leg weakness (Acute) Inflamed seborrheic keratosis (Resolved) Left distal femoral shaft fracture. Diagnosis and treatment options discussed with patient and her . She will continue nonweightbearing on her left lower extremity. Left knee immobilizer can be as needed only and she is in bed or chair.. OK to remove it if she is more comfortable with her brace off. Recommend wearing her brace for transferring. okay for transfers with assistance and weightbearing on the right lower extremity. I do recommend another bone density test. They understand. Continue Xarelto for DVT prevention. Continue incentive spirometer. Continue medical evaluation and treatment of other underlying conditions per hospitalist service and neurology senior consumer insights consultant orthopedic service signing off. Can be notified if needed. Okay for discharge to ECF. Follow-up with orthopedics in 12-14 days for evaluation, x-rays left femur, staple removal. This note was generated with [employer] dictation software. It may contain incorrect words, spelling, and punctuation that were not noted in checking the note before signing.
--- NOTE | 2018-10-14 17:10 | PN.ORTHO_ITS ---
Patient Problems: Active and Suspected Problems (Last Reviewed 10/13/18 @ 06:26 by Trevor Angeles MD) Femur fracture, left (Acute) Leg weakness (Acute) Subjective: Patient is postoperative day #1 from left distal femoral fracture internal fixation with retrograde intramedullary nailing. She denies severe pain. Pain controlled with medication. Denies chest pain or shortness of breath. Salinas catheter has been removed today. She has been evaluated by neurology. MRI pending. Patient is hoping for transfer to [facility] soon. Arrangements being made. She understands not to put weight on her left leg. Her left lower extremity knee immobilizer can be used on an as-needed basis. If she is more comfortable without it we can discontinue it. Objective: Patient seen with her present. Left lower extremity braces on and fitting well. Stanton wrap is on an fitting well. No blood on the bandage. Proximal screw site also has a small bandage without signs of bleeding. No calf pain bilaterally. Active plantar flexion dorsiflexion toes and ankles normal for her. Somewhat limited. Clinically legs are well aligned. Vital signs and laboratory work reviewed. Notes from hospitalist reviewed - Physical Exam Vital Signs Temp Pulse Resp BP Pulse Ox 98.6 F 82 16 104/51 L 96 10/14/18 13:59 10/14/18 13:59 10/14/18 13:59 10/14/18 13:59 10/14/18 13:59 Oxygen Flow Rate (L/min) 2 Oxygen Delivery Method Nasal Cannula Weight: 79.379 kg Body Mass Index (BMI) 30.0 Intake and Output for Last 24 Hours 10/12/18 10/13/18 10/14/18 23:59 23:59 23:59 Intake Total 2213.4 / 2213.4 1224 / 1224 Output Total 1974 / 1974 1300 / 1300 Balance 238.4 / 238.4 -76 / -76 Laboratory Tests Past 24 Hrs 10/14/18 10/14/18 05:22 05:22 WBC 9.0 RBC 3.43 L Hgb 10.9 L Hct 35.1 L MCV 102.3 H MCH 31.8 MCHC 31.1 L RDW 13.2 RDW Differential 48.8 H Plt Count 204 MPV 9.5 Sodium 141 Potassium 4.4 Chloride 109 H Carbon Dioxide 27.0 Anion Gap 5 BUN 8 Creatinine 0.81 Estim Creat Clear Calc 60.59 Est GFR (MDRD) Af Amer 91 Est GFR (MDRD) Non-Af 75 BUN/Creatinine Ratio 9.8 L Glucose 118 H Calcium 7.7 L Medical Necessity - Tobacco Use Smoking Status: Never smoker Assessment/Plan All Active Problems (Last Reviewed 10/13/18 @ 06:26 by Trevor Angeles MD) Femur fracture, left (Acute) Leg weakness (Acute) Inflamed seborrheic keratosis (Resolved) Left distal femoral shaft fracture. Diagnosis and treatment options discussed with patient and her . She will continue nonweightbearing on her left lower extremity. Left knee immobilizer can be as needed only and she is in bed or chair.. OK to remove it if she is more comfortable with her brace off. Recommend wearing her brace for transferring. okay for transfers with assistance and weightbearing on the right lower extremity. I do recommend another bone density test. They understand. Continue Xarelto for DVT prevention. Continue incentive spirometer. Continue medical evaluation and treatment of other underlying conditions per hospitalist service and neurology retail client solutions consultant orthopedic service signing off. Can be notified if needed. Okay for discharge to ECF. Follow-up with orthopedics in 12-14 days for evaluation, x-rays left femur, staple removal. This note was generated with [employer] dictation software. It may contain incorrect words, spelling, and punctuation that were not noted in checking the note before signing.
--- NOTE | 2018-10-14 17:34 | NURSING ---
[facility] CALLED PER MRI REQUEST REGARDING BACLOFEN PUMP. PER PEDIATRIC CNS, WILL NOT BE ABLE TO COMPLETE MRI UNTIL 10/15. SPOKE WITH [employer] REP WHO STATED WOULD BE ABLE TO CALL [employer] REP AT ANYTIME AND TO NOTIFY THEM 10/15 WHEN MRI KNOWS EXACT TIME FOR MRI FOR REP TO BE HERE. NOTIFIED EVAN IN MRI OF THIS INFORMATION. STATES WILL PLAN FOR MRI AT 0745, WILL VERIFY IN AM. [employer] PHONE # .
--- NOTE | 2018-10-14 18:34 | NURSING ---
BLADDER SCANNED FOR 16 ML. PT HAS NOT VOIDED SINCE DC HEAD
[2018-10-14 21:42] VITALS: BP 97/47; PULSE 72; RESP 18; TEMP 36.4; O2SAT 100
[2018-10-14] MEDS: Pramipexole Di-HCl 0.5 MG Tablet PO (21:46)
[2018-10-14 21:50] VITALS: PULSE 72; RESP 18; O2SAT 100
[2018-10-15] MEDS: Morphine 4 MG/ML Syringe 3 MG IV ×2 (00:18→07:58)
[2018-10-15] MEDS: tiZANidine HCl 2 MG Tablet 4 MG PO ×2 (00:51→10:09)
[2018-10-15] MEDS: Ketorolac 15 MG/ML Vial IV ×2 (01:52→12:20)
[2018-10-15] MEDS: oxyCODONE 5 MG Tablet PO ×2 (01:52→06:40)
[2018-10-15] MEDS: Acetaminophen 325 MG Tablet 650 MG PO ×2 (01:52→10:09)
[2018-10-15 02:51] VITALS: BP 113/52; PULSE 66; RESP 18; TEMP 37.1; O2SAT 98
[2018-10-15 04:06] LABS: Red Blood Cells-Urine 0 SEEN /hpf (0-5)
[2018-10-15 04:12] LABS: Color, Urine Yellow (Yellow); Glucose, Dipstick Normal (Normal); Ketone-Dipstick 5 mg/dl (Negative); Leukocyte Esterase-Dipstick 25 /ul (Negative); Nitrite-Dipstick Negative (Negative); Occult Blood-Urine Negative /ul (Negative); Protein-Dipstick 15 mg/dl (Negative); Urine Bilirubin Dipstick Negative (Negative); Urine Clarity Sl. Cloudy (Clear); Urine Urobilinogen 1 mg/dl (Normal)
[2018-10-15 04:38] LABS: Bacteria RARE /hpf (None Seen); Mucous, Urine 2+ /hpf (<or=2+); Squamous Epithelial Cells - UA 0-5 SEEN /hpf (5-10); White Blood Cells 0-5 SEEN /hpf (0-5)
[2018-10-15] MEDS: Rivaroxaban 10 MG Tablet PO (06:38)
[2018-10-15 06:47] LABS: Hematocrit 30.8 % (37-47); Hemoglobin 9.6 g/dl (12.0-15.0); Mean Corp Hgb Conc 31.2 g/gl (32-36); Mean Corpuscular Hgb 31.6 pg (27.0-32.0); Mean Corpuscular Volume 101.3 fL (81-99); Mean Platelet Vol. 9.6 fl (6.2-12.0); Platelet Count 184 K/mm3 (150-450); RBC Distribution Width CV 12.7 % (11.6-14.6); RBC Distribution Width SD 45.6 fl (35.1-43.9); Red Blood Count 3.04 M/mm3 (4.2-5.4); White Blood Count 7.8 K/mm3 (4.4-11.0)
[2018-10-15 06:52] LABS: Scan Indicated on CBC? Y/N NO
[2018-10-15 06:55] LABS: Anion Gap 1 (5-15); BUN 12 mg/dL (7-18); BUN/Creat Ratio 18.8 RATIO (10-20); Calcium,Total 7.6 mg/dL (8.5-10.1); Chloride 105 mmol/L (98-107); Creatinine, Serum 0.64 mg/dL (0.55-1.02); EST Glomerular Filtration Rate 100 mL/min (>60); Est Glom Filt Rate - Afr Amer 121 mL/min (>60); Estimated Creatinine Clearance 76.68 ml/min; Glucose 111 mg/dL (74-106); Potassium 4.1 mmol/L (3.5-5.1); Sodium Level 136 mmol/L (136-145)
[2018-10-15] MEDS: 0.9% NaCl Peripheral Flush Adult/Peds IV ×3 (07:11→12:21)
[2018-10-15 07:30] VITALS: O2SAT 98
--- NOTE | 2018-10-15 07:33 | MRI_ITS ---
STUDY: MRI BRAIN WITH AND WITHOUT CONTRAST REASON FOR EXAM: Female, 63 years old. Left leg weakness, and mass TECHNIQUE: Standardized multiplanar fat and water weighted pulse sequences were obtained. 15 IV Dotarem was administered for the contrast portion of the examination. COMPARISON: Brain MRI 02/02/2018. FINDINGS: Normal size of the ventricles and extra-axial spaces for the patient's age. There is a single, focal, nonenhancing left frontal lobe T2 and FLAIR hyperintense periventricular white matter lesion measuring approximately 4 mm best seen on FLAIR series 7 image 17, this is new since prior exam. No enhancing abnormality. Normal bilateral basal ganglia. Normal thalami. There is no extra-axial fluid accumulation. Normal flow voids within the major intracranial circulation suggesting patency by spin echo criteria. Normal venous enhancement. Normal sella turcica, pituitary gland, infundibular stalk, optic chiasm and hypothalamus. Normal tectal plate and pineal gland. Normal midbrain, beth and medulla. Normal cerebellum. Normal basal cisterns. Normal bilateral temporal bones. Normal bilateral internal auditory canals. 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 There is a small right sphenoid sinus air-fluid level. Remaining paranasal sinuses are clear. Normal calvarium and skull base. Normal visualized soft tissue structures. Normal visualized upper cervical spine. MRI/Brain W/WO Contrast IMPRESSION: There is a single, focal left frontal lobe periventricular white matter lesion measuring approximately 4 mm which may represent demyelinating lesion. This was not definitely seen on the prior exam. There is no enhancing lesions to suggest active demyelinating disease. Mild right sphenoid acute sinusitis. Electronically Signed: Chavo Arellano, at 10:37 EDT Tel , Service support ,
--- NOTE | 2018-10-15 07:45 | MRI_ITS ---
STUDY: MRI LUMBAR SPINE WITHOUT CONTRAST REASON FOR EXAM: Female, 63 years old. Left leg weakness, MS TECHNIQUE: Standardized fat and water weighted pulse sequences were obtained in the sagittal and axial planes. COMPARISON: MR thoracic spine 02/02/2018 FINDINGS: There is a small foraminal cyst in the right T12-L1 neural foraminal space measuring 8 x 8 mm, unchanged since prior exam. T12-L1: Normal endplates. Normal disc height, hydration and morphology. Normal bilateral facet joints. Normal central canal and bilateral lateral recesses. Normal bilateral intervertebral neural foramina. Normal lumbar lordosis. There is no substantial scoliosis. Normal conus medullaris that terminates at the L1-2: Normal endplates. Normal disc height, hydration and morphology. Normal bilateral facet joints. Normal central canal and bilateral lateral recesses. Normal bilateral intervertebral neural foramina. L2-3: Normal endplates. Normal disc height, hydration and morphology. Normal bilateral facet joints. Normal central canal and bilateral lateral recesses. Normal bilateral intervertebral neural foramina. L3-4: Normal endplates. Normal disc height, hydration and morphology. Normal bilateral facet joints. Normal central canal and bilateral lateral recesses. Normal bilateral intervertebral neural foramina. L4-5: Normal endplates. Normal disc height, hydration and morphology. Normal bilateral facet joints. Normal central canal and bilateral lateral recesses. Normal bilateral intervertebral neural foramina. L5-S1: Normal endplates. Normal disc height, hydration and morphology. Normal bilateral facet joints. Normal central canal and bilateral lateral recesses. Normal bilateral intervertebral neural foramina. Normal visualized sacral ala. There is a small Tarlov cyst. There is mild atrophy of the paravertebral muscles. MRI/Spine Lumbar (Routine) IMPRESSION: No significant degenerative changes. Normal visualized spinal cord. Small foraminal cyst in the right T12-L1 neural foraminal space is unchanged since prior exam. Electronically Signed: Chavo Arellano, at 10:27 EDT Tel , Service support ,
--- NOTE | 2018-10-15 07:45 | MRI_ITS ---
STUDY: MRI CERVICAL SPINE WITH AND WITHOUT CONTRAST REASON FOR EXAM: Female, 63 years old. Left leg weakness, multiple sclerosis TECHNIQUE: Standardized fat and water weighted pulse sequences were obtained in the sagittal and axial following administration of 15 IV Dotarem. COMPARISON: MR cervical spine 02/02/2018 FINDINGS: Normal foramen magnum and brainstem-cervical cord junction. Normal craniovertebral junction. Normal anterior atlantoaxial articulation. Normal odontoid process. Normal cervical lordosis. Normal vertebral bodies and posterior osseous elements. C2-3: Normal endplates. Normal disc height, signal and morphology. Normal central canal and intervertebral neural foramina. C3-4: Normal endplates. Normal disc height, signal and morphology. Normal central canal and intervertebral neural foramina. C4-5: Normal endplates. Normal disc height, signal and morphology. Normal central canal and intervertebral neural foramina. C5-6: Normal endplates. Normal disc height, signal and morphology. Normal central canal and intervertebral neural foramina. C6-7: Normal endplates. There is a small posterior disc osteophyte complex with mild ventral thecal sac narrowing. There is a 4 mm cyst at the left C6-C7 extraforaminal region. C7-T1: Normal endplates. Normal disc height, signal and morphology. Normal central canal . There are bilateral foraminal cysts, these measure up to 5 mm on the right and 3 mm on the left. Normal cervical cord. There is no enhancing abnormality. Normal visualized soft tissue structures. MRI/Spine Cervical W/WO Contrast IMPRESSION: There is multilevel foraminal and extraforaminal cyst as described above. Minimal degenerative change. Otherwise, normal unenhanced and enhanced MR examination of the cervical spine. Electronically Signed: Chavo Arellano, at 10:46 EDT Tel , Service support ,
--- NOTE | 2018-10-15 09:43 | NURSING ---
called [employer] regarding resuming baclofen pump.
[2018-10-15 10:00] VITALS: BP 94/47; PULSE 85; RESP 18; TEMP 36.9; O2SAT 95
[2018-10-15] MEDS: DULoxetine Hcl 30 MG Capsule PO (10:09)
[2018-10-15] MEDS: Gabapentin 300 MG Capsule PO (10:09)
[2018-10-15] MEDS: Tolterodine Tartrate 4 MG CAP.SA PO (10:09)
--- NOTE | 2018-10-15 11:00 | CASEMGMT ---
Addendum entered by Rayne Haro 10/15/18 11:27: Pt and pt's Carroll updated on pre-cert approval and likely discharge today. Original Note: Addendum entered by Rayne Haro 10/15/18 11:09: MARIANNE spoke with Lana at [facility] who states pre-cert has been obtained and pt is able to discharge today. Physician updated. Original Note: Social Work Note Physician states it is likely pt will be able to discharge today. MARIANNE spoke with Lana at [facility] and informed her that pt is likely ready for discharge today pending pre-cert. Plan: [facility] pending pre-cert Rayne Haro PARISH WORK[employer], [employer]
--- NOTE | 2018-10-15 11:35 | PCM.TXEXTCAR ---
- Diet 10/13/18 16:38 Diet: Regular Diet Is pt able to select menu?: Yes - Routine Orders/Code Status Suppository Type: Dulcolax 10mg Suppository Frequency: Daily PRN Routine Lab Work: CBC - On 10/18/2018, BMP - Wound(s) L LEG Wound Type: Surgical Incision - Therapies Weight Bearing: Non weight bearing Extremity Affected:: Bilateral Lower Physical Therapy: Eval and Treat Occupational Therapy: Eval and Treat Speech Therapy: Eval and Treat - Allergies/Procedures Done in Hospital Allergies/Adverse Reactions: Allergies No Known Allergies Allergy (Verified 03/17/14 11:28) - Type of Care/Length of Stay Estimated LOS: Convalescent Care Less Than 30 days Type of Care Needed: Skilled Rehab Potential: Fair Prognosis: Fair - Additional Orders/Day of Discharge Additional Orders: Follow-up with pain management doctor Magaly for baclofen pump refill Day of Discharge: 10/15/18 - Follow Up Care Primary Care Physician: Aroldo Wooten, [Primary Care Provider] - Please follow up with your Primary Care Physician in: IN 1-2 WEEKS Please Follow Up With: Priyanka Mcclendon MD When: IN 4 WEEKS Please Follow Up With: Gabriel Alves MD When: scheduled Please Follow Up With: magaly
--- NOTE | 2018-10-15 11:52 | DS.PCM_ITS ---
Discharge Date and Diagnosis Date of Admission: 10/12/18 Date of Discharge: 10/15/18 - Primary Discharge Diagnosis Active and Suspected Problems (Last Reviewed 10/13/18 @ 06:26 by Trevor Angeles MD) Femur fracture, left (Acute) Leg weakness (Acute) - Secondary Discharge Diagnosis Chronic Problems (Last Reviewed 10/13/18 @ 06:26 by Trevor Angeles MD) Spastic paraparesis (Chronic) Cutaneous horn (Chronic) Depression (Chronic) Osteoporosis (Chronic) Urinary incontinence (Chronic) Multiple sclerosis (Chronic) Hospital Course and Treatment Imaging Results: 10/15/18 07:33 MRI Brain [Brain W/WO Contrast] [MRI] Urgent 10/15/18 07:45 Spine Cervical W/WO Contrast [MRI] Urgent Spine Lumbar (Routine) [MRI] Urgent Summary of Care Provided: The patient is a 63 year old F with a significant history of multiple sclerosis and prior right lower extremity fracture with hardware who [facility] after she had a trivial fall from walker and with radiographic evidence of acute foreshortened comminuted fracture of the distal left femur. Patient has MS for last 19 years and is wheelchair-bound. 1. Acute foreshortened comminuted fracture of the distal left femur shaft, most likely pathological fracture secondary to osteoporosis with postoperative weakness of right lower extremity with baseline paraparesis secondary to spastic paraparesis: Femur x-ray shows acute foreshortened comminuted fracture of the distal left femur, most likely pathological from osteoporosis. Patient was treated with morphine and Toradol as needed. Orthopedic surgeon Dr. Alves was consulted. Patient had retrograde left femoral nailing, reamed and locked. Postoperatively in PACU, patient felt weakness of right lower extremity not able to flex at hip and knee joints. Patient follows Dr. Mackenzie for baclofen pump refill. Discussed with the neurologist, Dr. Mcclendon. Repeat MRI brain, C-spine and lumbar spine does not show acute change. Patient had nerve conduction studies in April 2018 which was reported as mild polyneuropathy with absence of pathology for spontaneous activity. She does not have MS as a repeat MRI brain does not show enhanced demyelinating lesion. Zanaflex discontinued. Baclofen resumed 2. Spastic paraplegia : As mentioned above patient baseline is wheelchair bound. Continue gabapentin, pramipexole and tizanidine as needed. Patient refills baclofen pump from Dr. Mackenzie. Rest as mentioned above 3. Mild low blood pressure probably baseline: Patient has baseline low blood pressure runs in the 90s most probably because of decreasing physical capacity and probably withdrawal was temporarily discontinued during MRI. Discussed with the [employer] solids control technician and he states hypotension is known side effect of baclofen withdrawal 4. Postoperative urine retention: Patient is not on indwelling Salinas catheter and watch spontaneously voiding grade before. Salinas catheter was reinserted after removal on 10/14/2018. Started on Flomax. Attempt Salinas catheter removal after 3 days on Flomax in SNF. Follow-up bladder scan every 4 hourly and if needed a straight cath. Patient is still has irritation, follow-up with Dr. Teran in 2-4 weeks. 4. Restless leg Mirapex continued DVT prophylaxis SCD to right leg at this time. On Xarelto 10 mg daily. Discharge medication reconciliation done. Discharge follow-up instructions completed. Discharge process discussed with the patient and her and all questions were answered to patient's satisfaction. Clinic for Xarelto and Flomax given. Follow-up with neurologist Dr. Mcclendon, Dr. Mackenzie and Dr. Alves as mentioned in discharge instructions. Total time spent, exact 35 minutes on discharge meds reconciliation, examination, review of imaging and blood test and discussion with the patient on follow-up instructions. Clinical Impression(s) from Imaging Studies Femur X-Ray 10/13/18 09:30 IMPRESSION: Surgical fixation of a femoral shaft fracture in the OR. Brain MRI 10/15/18 07:33 IMPRESSION: There is a single, focal left frontal lobe periventricular white matter lesion measuring approximately 4 mm which may represent demyelinating lesion. This was not definitely seen on the prior exam. There is no enhancing lesions to suggest active demyelinating disease. Mild right sphenoid acute sinusitis. Cervical Spine MRI 10/15/18 07:45 IMPRESSION: There is multilevel foraminal and extraforaminal cyst as described above. Minimal degenerative change. Otherwise, normal unenhanced and enhanced MR examination of the cervical spine. Lumbar Spine MRI 10/15/18 07:45 IMPRESSION: No significant degenerative changes. Normal visualized spinal cord. Small foraminal cyst in the right T12-L1 neural foraminal space is unchanged since prior exam. Subjective: Seen and examined. Patient had urinary retention after removal of the Salinas catheter yesterday and it was reinserted. Started on Flomax. Discussed with the neurologist. Patient had MRI of brain, cervical spine and lumbar spine and was discussed with the patient. Patient has baseline paraplegia and was not able to flex her right knee and hip preoperatively. Bipin elizabeth has baseline low blood pressure runs in the 90s most probably because of decreasing physical capacity and probably withdrawal was temporarily discontinued during MRI. Discussed with the [employer] solids control technician and he states hypotension is known side effect of baclofen withdrawal Clinical Impression(s) from Imaging Studies Femur X-Ray 10/13/18 09:30 IMPRESSION: Surgical fixation of a femoral shaft fracture in the OR. Brain MRI 10/15/18 07:33 IMPRESSION: There is a single, focal left frontal lobe periventricular white matter lesion measuring approximately 4 mm which may represent demyelinating lesion. This was not definitely seen on the prior exam. There is no enhancing lesions to suggest active demyelinating disease. Mild right sphenoid acute sinusitis. Cervical Spine MRI 10/15/18 07:45 IMPRESSION: There is multilevel foraminal and extraforaminal cyst as described above. Minimal degenerative change. Otherwise, normal unenhanced and enhanced MR examination of the cervical spine. Lumbar Spine MRI 10/15/18 07:45 IMPRESSION: No significant degenerative changes. Normal visualized spinal cord. Small foraminal cyst in the right T12-L1 neural foraminal space is unchanged since prior exam. Objective: General: Alert, Oriented x3, Cooperative HEENT: Atraumatic, PERRLA, EOMI, Normocephalic Neck: Supple, No JVD, Negative Carotid Bruits Lungs: Clear to auscultation, No rhonchi, No wheeze, No rales, Diminished Cardiovascular: Regular rate, Regular Rhythm, Normal S1, Normal S2, No murmurs Abdomen: Bowel Sounds Present, Soft, Non Tender, Non-Distended Extremities: No edema, Capillary Refill Less than 3 Seconds Skin: No rashes, No breakdown Musculoskeletal: Arthritic Changes, Muscle Wasting, Tenderness - Left lower extremity has surgical dressing with Stanton wrap bandage. Lymphatic: No Cervical, Supraclavicular, or Inguinal Adenopathy Neurological: Cranial nerves II-XII grossly intact, - - Chronic bilateral lower extremity weakness. Wheelchair-bound. Patient can wiggle toes. DTRs hyporeflexive, 1+. Right lower extremity not able to flex at hip or knee joints. Power is 1-2/5 at the major joints and right lower extremity. Left lower extremity immobilized after surgery Psych/Mental Status: Normal Affect, Appropriate - Physical Exam Vital Signs Temp Pulse Resp BP Pulse Ox 98.4 F 85 18 94/47 L 95 10/15/18 10:00 10/15/18 10:00 10/15/18 10:00 10/15/18 10:00 10/15/18 10:00 Oxygen Flow Rate (L/min) 2 Oxygen Delivery Method Nasal Cannula Weight: 175 lb Body Mass Index (BMI) 30.0 Intake and Output for Last 24 Hours 10/13/18 10/14/18 10/15/18 23:59 23:59 23:59 Intake Total 2213.4 / 2213.4 1602.3 / 1602.3 395 / 395 Output Total 1974 1400 / 1400 350 / 350 Balance 238.4 / 238.4 202.3 / 202.3 45 / 45 Laboratory Tests Past 24 Hrs 10/15/18 10/15/18 10/15/18 02:00 06:08 06:08 WBC 7.8 RBC 3.04 L Hgb 9.6 L Hct 30.8 L MCV 101.3 H MCH 31.6 MCHC 31.2 L RDW 12.7 RDW Differential 45.6 H Plt Count 184 MPV 9.6 Sodium 136 Potassium 4.1 Chloride 105 Carbon Dioxide 30.0 Anion Gap 1 L BUN 12 Creatinine 0.64 Estim Creat Clear Calc 76.68 Est GFR (MDRD) Af Amer 121 Est GFR (MDRD) Non-Af 100 BUN/Creatinine Ratio 18.8 Glucose 111 H Calcium 7.6 L Urine Color Yellow Urine Clarity Sl. Cloudy Urine pH 5.0 Ur Specific [place] 1.020 Urine Protein 15 H Urine Glucose (UA) Normal Urine Ketones 5 H Urine Occult Blood Negative Urine Nitrite Negative Urine Bilirubin Negative Urine Urobilinogen 1 H Ur Leukocyte Esterase 25 H Urine RBC 0 SEEN Urine WBC 0-5 SEEN Ur Squamous Epith Cells 0-5 SEEN Urine Bacteria RARE Urine Mucus 2+ Home Medications: Medications to take at Discharge Gabapentin [Neurontin] 300 mg PO DAILY 10/12/18 Tolterodine Tartrate [Tolterodine Tartrate ER] 4 mg PO DAILY 10/12/18 Baclofen [Lioresal Intrathecal] 10/13/18 Pramipexole Di-HCl [Mirapex] 0.5 mg PO QHS 10/13/18 Acetaminophen [Tylenol Tablet] 650 mg PO Q6H PRN PRN tablet 10/15/18 Rivaroxaban [Xarelto] 10 mg PO DAILY@0600 #14 tab 10/15/18 Tamsulosin HCl [Flomax] 0.4 mg PO DAILY #30 cap.er.24h 10/15/18 Following Prescrptions Were Given to Patient: Rivaroxaban [Xarelto] 10 mg PO DAILY@0600 #14 tab Tamsulosin HCl [Flomax] 0.4 mg PO DAILY #30 cap.er.24h Primary Care Physician: Aroldo Wooten DO [Primary Care Provider] - Please follow up with your Primary Care Physician in: IN 1-2 WEEKS Please Follow Up With: Priyanka Mcclendon MD When: IN 4 WEEKS Please Follow Up With: Gabriel Alves MD When: scheduled Please Follow Up With: magaly Medical Necessity - Tobacco Use Smoking Status: Never smoker Meaningful Use Info Meaningful Use Diagnoses (Choose all that apply): None applicable Code Visit Inpatient E&M: 61316 Disch Hosp
--- NOTE | 2018-10-15 12:08 | NURSING ---
Lissy from [employer] came to unit and confirmed that baclofen pump has restarted and is working properly following MRI test
[2018-10-15 12:15] VITALS: BP 86/46; PULSE 64; RESP 16; TEMP 36.6; O2SAT 98
--- NOTE | 2018-10-15 12:39 | NURSING ---
Addendum entered by Steph Haynes 10/15/18 15:50: Beatris from [employer] returned phone call and stated that a side effect of pausing the baclofen pump can be hypotension. she thinks that the MRI this morning when the baclofen pump was paused for 3 hours might have caused the low BP. informed Dr Matthews and he stated to continue to monitor BP Original Note: [facility] request to pause baclofen pump for a few hours due to low BP. awaiting return phone call from rep
--- NOTE | 2018-10-15 13:15 | CASEMGMT ---
Social Work Note Physician is discharging pt today. MARIANNE faxed completed discharge paperwork to [facility] including transfer to extended care facility, signed medication list and any scripts. Originals in SNF folder and copy on pt's chart. MARIANNE completed convalescent [facility] in [facility]. Original in SNF folder and copy on pt's chart. MARIANNE arranged transportation through [facility] via cot for 2:30/3:00pm. MARIANNE updated RN, Pt, Pt's , and Lana at [facility] of transportation time. Transportation form on SNF folder and copy on pt's chart. Plan: Pt to discharge to [facility] skilled today with [facility] transporting via cot at 2:30/3:00pm Rayne EDDY, JASON
--- NOTE | 2018-10-15 13:54 | PN.NEURO_ITS ---
Patient Problems: Active and Suspected Problems (Last Reviewed 10/13/18 @ 06:26 by Trevor Angeles MD) Femur fracture, left (Acute) Leg weakness (Acute) Subjective: No issues overnight. Per and patient at baseline patient is not able to move her right lower extremity, she can manually move her right lower extremity with her hands, she may be able to use her left lower extremity. But has been wheelchair-bound for many years and does not ambulate per patient and . MRI brain with without contrast reported to show single, focal left frontal lobe periventricular white matter lesion measuring approximately 4 mm which may represent demyelinating lesion. This was not definitely seen on the prior exam. There is no enhancing lesions to suggest active demyelinating disease. Mild right sphenoid acute sinusitis. But on my review it probably looks like a nonspecific very small frontal lesion and highly unlikely to be demyelinating lesion at present. Discussed with patient and . MRI cervical spine reported to show multilevel foraminal and extraforaminal cyst, degenerative changes, no abnormal enhancement or demyelinating lesions. MRI lumbar spine reported to show small foraminal cyst in the right T12-L1 neural foraminal space is unchanged since prior exam. - Physical Exam General: Alert HEENT: Normocephalic Neck: Supple Lungs: Normal air movement Cardiovascular: Normal S1, Normal S2 Abdomen: Bowel Sounds Present Extremities: No cyanosis Neurological: - - consious, alert, CN 2-12 groslly intact, power B/L UE 5/5, B/L LE-increase tone, is able to move her toes, plantars right equivocal, left flexor, no sensory loss, no cerebellar signs, Reflexes + B/L B/S/T/K/A, gait could not be assessed Psych/Mental Status: Normal Affect Vital Signs Temp Pulse Resp BP Pulse Ox 97.9 F 64 16 86/46 L 98 10/15/18 12:15 10/15/18 12:15 10/15/18 12:15 10/15/18 12:15 10/15/18 12:15 Oxygen Flow Rate (L/min) 2 Oxygen Delivery Method Room Air Weight: 79.379 kg Body Mass Index (BMI) 30.0 Intake and Output for Last 24 Hours 10/13/18 10/14/18 10/15/18 23:59 23:59 23:59 Intake Total 2213.4 / 2213.4 1602.3 / 1602.3 495 / 495 Output Total 1974 1400 / 1400 500 / 500 Balance 238.4 / 238.4 202.3 / 202.3 -5 / -5 Laboratory Tests Past 24 Hrs 10/15/18 10/15/18 10/15/18 02:00 06:08 06:08 WBC 7.8 RBC 3.04 L Hgb 9.6 L Hct 30.8 L MCV 101.3 H MCH 31.6 MCHC 31.2 L RDW 12.7 RDW Differential 45.6 H Plt Count 184 MPV 9.6 Sodium 136 Potassium 4.1 Chloride 105 Carbon Dioxide 30.0 Anion Gap 1 L BUN 12 Creatinine 0.64 Estim Creat Clear Calc 76.68 Est GFR (MDRD) Af Amer 121 Est GFR (MDRD) Non-Af 100 BUN/Creatinine Ratio 18.8 Glucose 111 H Calcium 7.6 L Urine Color Yellow Urine Clarity Sl. Cloudy Urine pH 5.0 Ur Specific [place] 1.020 Urine Protein 15 H Urine Glucose (UA) Normal Urine Ketones 5 H Urine Occult Blood Negative Urine Nitrite Negative Urine Bilirubin Negative Urine Urobilinogen 1 H Ur Leukocyte Esterase 25 H Urine RBC 0 SEEN Urine WBC 0-5 SEEN Ur Squamous Epith Cells 0-5 SEEN Urine Bacteria RARE Urine Mucus 2+ Medical Necessity - Tobacco Use Smoking Status: Never smoker Assessment/Plan All Active Problems (Last Reviewed 10/13/18 @ 06:26 by Trevor Angeles MD) Femur fracture, left (Acute) Leg weakness (Acute) Inflamed seborrheic keratosis (Resolved) The patient is a 63 year old F PMH RLS, spastic paraparesis, neuropathy admitted status post fall found to have left distal femoral shaft fracture status post retrograde left femoral nailing, ORIF by Dr. Alves on 10/13/2018 following which it was documented that patient was unable to flex right hip or knee after surgery. Neurology consulted for this lower extremity weakness. Patient is known to me from outpatient follow-up. At baseline patient is wheelchair-bound. Patient at baseline is a poor historian, she initially saw me stating that she has MS and was diagnosed by Dr. Rene. But MRI brain with and without contrast, MRI C-spine with and without contrast and MRI T-spine with and without contrast done on February 02, 2018 did not report to show any demyelinating or enhancing lesions suggestive of MS. During the office visit it was documented patient has spasticity in both lower extremities and was probably not able to move the lower extremities. Patient has a baclofen pump and is being refilled by Dr. Mackenzie. At present patient denies any new onset of sensory loss, has vera catheter in place, denies any bowel incontinence. She denies any new onset of neck pain or low back pain, denies any radicular symptoms. Denies any weakness in the arms, denies any headache dizziness visual disturbance speech disturbances or headache. Impression H/O Spastic paraparesis ? right LE weakness following surgery for left femur fracture and ORIF Plan ?MRI Brain, MRI C-spine and MRI L-spine report reviewed ?PT/OT ?EMG/nerve conduction done on 04/3020 reported to show mild neuropathy in bilateral lower extremities. ?Based on the MRI brain, MRI C-spine and MRI thoracic spine done on January 2018 patient likely does not have any demyelinating or enhancing lesions suggestive of MS ?HTLV-I/2 antibodies reported negative in the past. ?Fall precautions ?Further medical management per hospitalist team ?Please call with questions if any. ?Follow-up with neurology as outpatient in 6 weeks ?Thank you for allowing us to participate in patient's care and management.
[2018-10-15 13:55] VITALS: BP 78/37; PULSE 86; RESP 16; TEMP 36.6; O2SAT 92
[2018-10-15 14:20] VITALS: BP 73/45; BP 76/43; PULSE 84
--- NOTE | 2018-10-15 15:50 | NURSING ---
report was called to L[facility]pez at the [facility]
== END 2018-10-15 14:44 | DRG 481 ==
LOC: ED 21:25 → MS3 23:57
PROVIDERS: Anesthesiology; Orthopaedic Surgery; Psychiatry & Neurology Neurology; Admitting Provider Hospitalist; Emergency Provider Emergency Medicine; Family Provider Family Medicine; PCP Family Medicine; Visit Provider Internal Medicine
PROC: 0QH906Z Insertion of Intramedullary Internal Fixation Device into Left Femoral Shaft, Open Approach (ICD-10-PCS; CPT 27245; principal; 2018-10-13 09:05)
DX: M80.052A Age-related osteoporosis with current pathological fracture, left femur, initial encounter for fracture (principal); G11.4 Hereditary spastic paraplegia; W18.39XA Other fall on same level, initial encounter; G35 Multiple sclerosis; F32.9 Major depressive disorder, single episode, unspecified; R32 Unspecified urinary incontinence; L85.8 Other specified epidermal thickening; G25.81 Restless legs syndrome; Z91.81 History of falling; Z79.01 Long term (current) use of anticoagulants; Z79.899 Other long term (current) drug therapy
CPT/HCPCS: 36415; 70553; 71045; 72148; 72156; 73552; 76000; 80048; 81001; 85025; 85027; 85610; 86850; 86900; 87086; 93005; 97162; 97166; 97530; 99284; A9575; C1713; J7030; J7120; A4216; J2405

== ENCOUNTER → 2018-10-18 06:30 | Outpatient (REF) | payer MEDICARE, SELFPAY ==
[2018-10-18 08:55] LABS: Hematocrit 32.4 % (37-47); Hemoglobin 10.5 g/dl (12.0-15.0); Mean Corp Hgb Conc 32.4 g/gl (32-36); Mean Corpuscular Hgb 31.7 pg (27.0-32.0); Mean Corpuscular Volume 97.9 fL (81-99); Mean Platelet Vol. 9.5 fl (6.2-12.0); Platelet Count 337 K/mm3 (150-450); Red Blood Count 3.31 M/mm3 (4.2-5.4)
[2018-10-18 09:00] LABS: Scan Indicated on CBC? Y/N NO
== END ==
LOC: OLS.AVEB 06:30
PROVIDERS: Visit Provider Family Medicine
DX: Z79.899 Other long term (current) drug therapy (principal); S72.009A Fracture of unspecified part of neck of unspecified femur, initial encounter for closed fracture
CPT/HCPCS: 36415; 85027

== ENCOUNTER → 2018-10-20 04:50 | Outpatient (REF) | payer MEDICARE, SELFPAY ==
[2018-10-20 06:40] LABS: Absolute Lymphocyte Count 2.11 X10^3/ul (0.83-4.51); Absolute Neutrophil Count 4.2 X10^3/uL (2.0-7.7); Basophil# 0.02 X10^3/uL; Basophil% 0.3 % (0-1); Eosinophil# 0.21 X10^3/uL; Eosinophils% 2.9 % (0-5); Hematocrit 35.1 % (37-47); Hemoglobin 11.2 g/dl (12.0-15.0); Lymphocyte # 2.11 X10^3/ul (4.0); Lymphocyte % 29.5 % (19-41); Mean Corp Hgb Conc 31.9 g/gl (32-36); Mean Corpuscular Hgb 31.4 pg (27.0-32.0); Mean Corpuscular Volume 98.3 fL (81-99); Mean Platelet Vol. 9.2 fl (6.2-12.0); Monocyte# 0.59 X10^3/uL; Monocyte% 8.2 % (0-10); Neutrophil # 4.22 X10^3/uL (2.7-7.7); Platelet Count 402 K/mm3 (150-450); RBC Distribution Width CV 13.8 % (11.6-14.6); Red Blood Count 3.57 M/mm3 (4.2-5.4); White Blood Count 7.2 K/mm3 (4.4-11.0)
[2018-10-20 06:44] LABS: POSITIVE COUNT NO; POSITIVE DIFFERENTIAL NO; POSITIVE MORPHOLOGY NO
[2018-10-20 06:54] LABS: Anion Gap 6 (5-15); BUN 14 mg/dL (7-18); BUN/Creat Ratio 21.5 RATIO (10-20); Calcium,Total 8.5 mg/dL (8.5-10.1); Chloride 110 mmol/L (98-107); Creatinine, Serum 0.65 mg/dL (0.55-1.02); EST Glomerular Filtration Rate 97 mL/min (>60); Est Glom Filt Rate - Afr Amer 118 mL/min (>60); Glucose 105 mg/dL (74-106); Potassium 4.3 mmol/L (3.5-5.1); Sodium Level 142 mmol/L (136-145)
== END ==
LOC: OLS.AVEB 04:50
PROVIDERS: Visit Provider Family Medicine
DX: G35 Multiple sclerosis (principal)
CPT/HCPCS: 36415; 80048; 85025

== ENCOUNTER → 2018-11-03 05:50 | Outpatient (REF) | payer MEDICARE, SELFPAY ==
[2018-11-03 07:19] LABS: Anion Gap 3 (5-15); BUN 15 mg/dL (7-18); BUN/Creat Ratio 18.5 RATIO (10-20); Calcium,Total 8.7 mg/dL (8.5-10.1); Chloride 109 mmol/L (98-107); Creatinine, Serum 0.81 mg/dL (0.55-1.02); EST Glomerular Filtration Rate 76 mL/min (>60); Est Glom Filt Rate - Afr Amer 92 mL/min (>60); Glucose 98 mg/dL (74-106); Potassium 5.4 mmol/L (3.5-5.1); Sodium Level 140 mmol/L (136-145)
[2018-11-03 07:55] LABS: Absolute Lymphocyte Count 3.05 X10^3/ul (0.83-4.51); Absolute Neutrophil Count 3.2 X10^3/uL (2.0-7.7); Basophil# 0.03 X10^3/uL; Basophil% 0.4 % (0-1); Eosinophil# 0.23 X10^3/uL; Eosinophils% 3.2 % (0-5); Hematocrit 40.7 % (37-47); Hemoglobin 12.8 g/dl (12.0-15.0); Lymphocyte # 3.05 X10^3/ul (4.0); Lymphocyte % 42.7 % (19-41); Mean Corp Hgb Conc 31.4 g/gl (32-36); Mean Corpuscular Hgb 31.4 pg (27.0-32.0); Mean Corpuscular Volume 99.8 fL (81-99); Mean Platelet Vol. 9.3 fl (6.2-12.0); Monocyte# 0.58 X10^3/uL; Monocyte% 8.1 % (0-10); Neutrophil # 3.23 X10^3/uL (2.7-7.7); Neutrophil % 45.3 % (47-70); Platelet Count 349 K/mm3 (150-450); RBC Distribution Width CV 13.9 % (11.6-14.6); RBC Distribution Width SD 49.9 fl (35.1-43.9); Red Blood Count 4.08 M/mm3 (4.2-5.4); White Blood Count 7.1 K/mm3 (4.4-11.0)
[2018-11-03 07:57] LABS: POSITIVE COUNT NO; POSITIVE DIFFERENTIAL NO; POSITIVE MORPHOLOGY NO
== END ==
LOC: OLS.AVEB 05:50
PROVIDERS: Visit Provider Family Medicine
DX: Z79.899 Other long term (current) drug therapy (principal)
CPT/HCPCS: 36415; 80048; 85025

== ENCOUNTER → 2018-12-01 | Outpatient (REF) | payer MEDICARE, SELFPAY ==
[2018-12-01 07:49] LABS: Absolute Lymphocyte Count 2.89 X10^3/ul (0.83-4.51); Absolute Neutrophil Count 2.9 X10^3/uL (2.0-7.7); Basophil# 0.04 X10^3/uL; Basophil% 0.6 % (0-1); Eosinophil# 0.24 X10^3/uL; Eosinophils% 3.6 % (0-5); Hematocrit 42.2 % (37-47); Hemoglobin 13.2 g/dl (12.0-15.0); Lymphocyte # 2.89 X10^3/ul (4.0); Lymphocyte % 43.7 % (19-41); Mean Corp Hgb Conc 31.3 g/gl (32-36); Mean Corpuscular Hgb 30.6 pg (27.0-32.0); Mean Corpuscular Volume 97.7 fL (81-99); Mean Platelet Vol. 9.6 fl (6.2-12.0); Monocyte# 0.53 X10^3/uL; Neutrophil % 43.9 % (47-70); Platelet Count 311 K/mm3 (150-450); RBC Distribution Width CV 13.4 % (11.6-14.6); RBC Distribution Width SD 46.7 fl (35.1-43.9); Red Blood Count 4.32 M/mm3 (4.2-5.4); White Blood Count 6.6 K/mm3 (4.4-11.0)
[2018-12-01 07:54] LABS: POSITIVE COUNT NO; POSITIVE DIFFERENTIAL NO; POSITIVE MORPHOLOGY NO
[2018-12-01 07:56] LABS: Anion Gap 6 (5-15); BUN 11 mg/dL (7-18); BUN/Creat Ratio 16.4 RATIO (10-20); Calcium,Total 8.6 mg/dL (8.5-10.1); Chloride 109 mmol/L (98-107); Creatinine, Serum 0.67 mg/dL (0.55-1.02); EST Glomerular Filtration Rate 94 mL/min (>60); Est Glom Filt Rate - Afr Amer 114 mL/min (>60); Glucose 99 mg/dL (74-106); Potassium 4.4 mmol/L (3.5-5.1); Sodium Level 142 mmol/L (136-145)
== END | disposition home or self-care (01) ==
LOC: OLS.AVEB 05:00
PROVIDERS: Visit Provider Family Medicine
DX: S72.92XA Unspecified fracture of left femur, initial encounter for closed fracture (principal); G35 Multiple sclerosis; M81.0 Age-related osteoporosis without current pathological fracture
CPT/HCPCS: 36415; 80048; 85025

== ENCOUNTER → 2020-04-24 11:43 | Outpatient (CLI) | payer OTHER, BC, SELFPAY ==
--- NOTE | 2020-04-24 11:47 | RAD_ITS ---
STUDY: X-RAY - PELVIS AND LEFT HIP REASON FOR EXAM: Female, 64 years old. loss of motion, hx of broken femur TECHNIQUE: 5 views of the pelvis and hip. COMPARISON: Prior study of 10/12/2018 FINDINGS: There is a non-specific bowel gas pattern. Normal visualized soft tissue structures. Normal bilateral iliac wings, sacroiliac joints and visualized sacrum. Normal bilateral superior and inferior pubic rami. Normal pubic symphysis. Normal bilateral ischial tuberosities. There is an intramedullary mila of the entire length of the left femur stabilizing an old healed distal shaft fracture. There is no evidence of acute fracture, dislocation, or significant degenerative disease. Status post old ORIF changes of the right hip are also noted. RAD/Hip uni 4+ views with Pelvis IMPRESSION: The bony pelvis is intact with no evidence of fracture or lytic or blastic osseous process. Old ORIF changes of the right hip. Intramedullary mila noted throughout the entire length of left femoral shaft which stabilized an old healed distal femoral shaft fracture. There is no evidence of acute fracture, dislocation, or significant degenerative disease. Electronically Signed: Galen Beavers MD at 16:11 EDT , Service support ,
== END ==
PROVIDERS: PCP Family Medicine; Referring Provider Family Medicine; Visit Provider Family Medicine
DX: M25.552 Pain in left hip (principal)
CPT/HCPCS: 73503

== ENCOUNTER → 2020-05-07 10:45 | Outpatient (CLI) | payer MEDICARE, BC, SELFPAY ==
--- NOTE | 2020-05-07 10:46 | MRI_ITS ---
STUDY: MRI LEFT KNEE REASON FOR EXAM: Left knee pain after femur fracture in 2019. TECHNIQUE: Standardized fat and water weighted pulse sequences were obtained in all 3 orthogonal planes. COMPARISON: Radiographs of the left femur 10/13/2018. FINDINGS: Normal medial meniscus. Normal hyaline cartilage of the medial femorotibial compartment. Normal medial femoral condyle and tibial plateau. Normal medial collateral ligamentous complex (MCL). Normal distal semimembranosus, gracilis and semitendinosus tendons. There is a small radial tear of the body of the lateral meniscus (T2 sagittal image 19; T2 coronal image 13). Normal hyaline cartilage of the lateral femorotibial compartment. Normal lateral femoral condyle and tibial plateau. Normal proximal tibiofibular articulation. Normal lateral collateral (fibular) ligament. Normal popliteus tendon. Normal biceps femoris tendon. Normal anterior cruciate ligament (ACL). Normal posterior cruciate ligament (PCL). Normal congruent patellofemoral articulation. Normal hyaline cartilage of the patellofemoral compartment. Normal medial and lateral patellar retinaculum. Normal quadriceps tendon. Normal patellar tendon. Normal Hoffa''s fat pad. There is no joint effusion. There is mild edema in the anterior and posterior subcutis adipose space. There is atrophy with fat replacement of the medial gastrocnemius muscle (proton-density coronal image 5). There is artifact from an intramedullary mila in the femur. MRI/Lower Ext Joint Only (Routine) IMPRESSION: Small radial tear of the lateral meniscus. Atrophy of the medial gastrocnemius muscle. Electronically Signed: Alfonso Grey MD at 13:31 EDT Tel , Service support ,
== END ==
PROVIDERS: PCP Family Medicine; Referring Provider Family Medicine; Visit Provider Family Medicine
DX: M25.562 Pain in left knee (principal)
CPT/HCPCS: 73721

== ENCOUNTER → 2020-05-11 16:57 | Outpatient (CLI) | payer OTHER, SELFPAY ==
--- NOTE | 2020-05-11 16:59 | CT_ITS ---
CT of the left thigh without contrast. INDICATION: Hip pain. TECHNIQUE: Multiple thin section axial CT images the left thigh were obtained from the hip to the knee without the ministration of intravenous contrast and filmed in soft tissue and bone windows. Furthermore, multiple sagittal and coronal reconstructions were performed. Dose limiting techniques were utilized. FINDINGS: No abnormal soft tissue mass, lymphadenopathy, fluid collection. No acute fracture or dislocation. Healed fracture of the midshaft of the right femur after open reduction internal fixation with an intramedullary mila. IMPRESSION: Healed fracture the midshaft of the femur after open reduction and internal fixation. Electronically Signed: Heber Rangel MD at 13:03 EDT Tel , Service support , CT/Extremity Lower without Contra
== END ==
PROVIDERS: PCP Family Medicine; Referring Provider Family Medicine; Visit Provider Family Medicine
DX: M25.552 Pain in left hip (principal)
CPT/HCPCS: 73700

== ENCOUNTER 2020-09-27 15:17 | Outpatient (RCR) | payer MEDICARE, SELFPAY ==
[2020-09-27] MEDS: COVID-19 VACC, MRNA(PFIZER)/PF 30 MCG/0.3 ML SYRINGE IM (17:51)
[2020-10-18] MEDS: COVID-19 VACC, MRNA(PFIZER)/PF 30 MCG/0.3 ML SYRINGE IM (17:40)
== END 2020-12-25 23:59 ==
LOC: IMMUN 15:17
PROVIDERS: PCP Family Medicine; Referring Provider Family Medicine; Visit Provider Family Medicine
DX: Z23 Encounter for immunization (principal)
CPT/HCPCS: 0001A; 0002A; 91300

== ENCOUNTER → 2021-05-13 13:48 | Outpatient (CLI) | payer MEDICARE, BC, SELFPAY ==
--- NOTE | 2021-05-13 13:50 | BI_ITS ---
MAMMOGRAPHY - BILATERAL SCREENING REASON FOR EXAM: Female, 65 years old. Routine annual screening examination. PERTINENT HISTORY: Non-contributory. Remote right excisional breast biopsy. TECHNIQUE: Digital bilateral breast oleg (3D mammographic acquisition) in the CC and MLO projections. 2-D mediolateral oblique (MLO) and craniocaudad (CC) views of both breasts were obtained. CAD: Full Field Digital Mammography with Computer Added Detection was performed. COMPARISON: Comparison is made with prior examination dated 07/14/2017 and 06/24/2016. FINDINGS: Breast Composition: The breasts are heterogeneously dense, which may obscure small masses. There are no dominant masses or suspicious calcifications. No other significant abnormalities are identified. There has been no significant change since the prior study. BI/SCRN MAMM (CAD)W/OLEG BILAT IMPRESSION: Stable bilateral screening mammogram. Yearly follow-up mammogram recommended. (A) ASSESSMENT CATEGORY: BIRADS Category 1: Negative. A letter regarding these results will be sent to the patient by the facility within 30 days. Approximately 10% of breast cancers are not detected by mammography. A normal mammogram should not delay biopsy of a clinically suspicious abnormality. [id number] Electronically Signed: Iain Bowser MD at 13:37 EDT , Service support ,
== END ==
PROVIDERS: PCP Family Medicine; Visit Provider Family Medicine
DX: Z12.31 Encounter for screening mammogram for malignant neoplasm of breast (principal)
CPT/HCPCS: 77063; 77067

== ENCOUNTER → 2022-04-03 | Outpatient (CLI) | payer MEDICARE, BC, SELFPAY ==
[2022-04-03 12:13] LABS: Absolute Lymphocyte Count 1.82 X10^3/uL (0.83-4.51); Absolute Neutrophil Count 2.9 X10^3/uL (2.0-7.7); Basophil# 0.05 X10^3/uL; Basophil% 0.9 % (0-1); Eosinophil# 0.16 X10^3/uL; Eosinophils% 2.9 % (0-5); Hematocrit 47.1 % (37-47); Hemoglobin 14.8 g/dL (12.0-15.0); Lymphocyte # 1.82 X10^3/ul (0.83-4.51); Lymphocyte % 32.6 % (19-41); Mean Corp Hgb Conc 31.4 g/dL (32-36); Mean Corpuscular Volume 98.5 fL (81-99); Mean Platelet Vol. 10.4 fl (6.2-12.0); Monocyte# 0.61 X10^3/uL; Monocyte% 10.9 % (0-10); NRBC Flagged by Analyzer 0 % (0-5); Neutrophil # 2.91 X10^3/uL (2.7-7.7); Neutrophil % 52.2 % (47-70); Platelet Count 295 K/mm3 (150-450); RBC Distribution Width CV 13.7 % (11.6-14.6); RBC Distribution Width SD 50.4 fl (35.1-43.9); Red Blood Count 4.78 M/mm3 (4.2-5.4); White Blood Count 5.6 K/mm3 (4.4-11.0)
[2022-04-03 13:28] LABS: ALB/GLOB Ratio 0.8 RATIO (0.9-2.4); AST(SGOT) 37 U/L (15-37); Alanine Aminotransfer ALT/SGPT 43 U/L (13-56); Albumin, Serum 3.7 g/dL (3.2-5.0); Alkaline Phosphatase 94 U/L (45-117); Anion Gap 7 (5-15); BUN 9 mg/dL (7-18); Calcium,Total 9.7 mg/dL (8.5-10.1); Chloride 106 mmol/L (98-107); Creatinine, Serum 0.82 mg/dL (0.55-1.02); EST Glomerular Filtration Rate 74 mL/min (>60); Est Glom Filt Rate - Afr Amer 90 mL/min (>60); Globulin 4.8 g/dL (2.2-4.2); Glucose 112 mg/dL (74-106); Potassium 4.7 mmol/L (3.5-5.1); Protein, Total 8.5 g/dL (6.4-8.2); Sodium Level 142 mmol/L (136-145); T4 Free Direct 1.15 ng/dL (0.76-1.46); Thyroid Stim Hormone (TSH) 1.86 uIU/mL (0.358-3.74)
== END | disposition home or self-care (01) ==
LOC: BIMLAB 10:34
PROVIDERS: PCP Family Medicine; Referring Provider Family Medicine; Visit Provider Family Medicine
DX: G35 Multiple sclerosis (principal); R60.9 Edema, unspecified; F32.9 Major depressive disorder, single episode, unspecified
CPT/HCPCS: 36415; 80053; 84439; 84443; 85025

== ENCOUNTER 2022-04-10 11:36 | Outpatient (CLI) | payer MEDICARE, BC, SELFPAY ==
[2022-04-10 11:38] LABS: Mucous, Urine 0 SEEN /hpf (<or=2+); Red Blood Cells-Urine 0 SEEN /hpf (0-5)
[2022-04-10 12:11] LABS: Color, Urine Yellow (Yellow); Glucose, Dipstick Normal (Normal); Ketone-Dipstick Negative (Negative); Leukocyte Esterase-Dipstick 500 /ul (Negative); Nitrite-Dipstick Negative (Negative); Occult Blood-Urine 10 /ul (Negative); Protein-Dipstick Negative (Negative); Specific Gravity, Urine 1.015 (1.002-1.030); Urine Bilirubin Dipstick Negative (Negative); Urine Clarity Sl. Cloudy (Clear); Urine Urobilinogen Normal (Normal)
[2022-04-10 12:30] LABS: White Blood Cells 25-50 SEEN /hpf (0-5)
[2022-04-10 12:31] LABS: Bacteria 3+ /hpf (None Seen); Squamous Epithelial Cells - UA 0-5 SEEN /hpf (5-10)
== END 2022-04-10 23:59 | disposition home or self-care (01) ==
LOC: LABSPEC 11:37
PROVIDERS: PCP Family Medicine; Referring Provider Family Medicine; Visit Provider Family Medicine
DX: R60.9 Edema, unspecified (principal); Z79.899 Other long term (current) drug therapy
CPT/HCPCS: 81001; 87077; 87086; 87088; 87186

== ENCOUNTER → 2022-04-25 | Outpatient (CLI) | payer MEDICARE, BC, SELFPAY ==
--- NOTE | 2022-04-25 10:05 | VDLE_ITS ---
Reason For Study: EDEMA RIGHT LEFT GSV is normal. GSV is normal. CFV is compressible, spontaneous, phasic, Acute deep vein thrombosis is noted in the competent and demonstrates normal left common femoral vein. augmentation. Acute deep vein thrombosis is noted in the FV is compressible, spontaneous, phasic, left femoral vein. competent and demonstrates normal POP V is compressible, spontaneous, competent augmentation. and demonstrates pulsatile venous flow. POP V is compressible, spontaneous, phasic, T/P Trunk is compressible. competent and demonstrates normal PTV is compressible. augmentation. LT PerV is compressible. T/P Trunk is compressible. PTV is compressible. RT PerV is compressible. Procedure This is a venous duplex using B-mode, color flow and spectral Doppler. Exam performed in department. The exam was diagnostic. Technically difficult study due to patient immobility, edema and small vessels. A preliminary report was called and/or faxed to The office of Evan Killian. VL/Venous Duplex US - Bj Extrem Interpretation Summary There is no evidence of right lower extremity deep vein thrombosis. Right great saphenous vein appears patent and compressible segmentally. Acute deep venous thrombosis left common femoral and femoral veins. Pulsatile flow noted in the left popliteal vein consistent with proximal venous hypertension or obstruction Patent and compressible left great saphenous vein Ordering Physician: EVAN KILLIAN Referring Physician: Elliott Wooten M.D. Performed By: Moe Ibrahim RVT
== END | disposition home or self-care (01) ==
PROVIDERS: PCP Family Medicine
DX: I82.412 Acute embolism and thrombosis of left femoral vein (principal); R60.0 Localized edema
CPT/HCPCS: 93970

== ENCOUNTER → 2022-05-02 | Outpatient (CLI) | payer MEDICARE, BC, SELFPAY ==
--- NOTE | 2022-05-02 10:55 | ECHOD_ITS ---
Reason For Study: HTN Procedure This was a 2D Doppler, Color Flow transthoracic echocardiogram. Exam performed in department. Left Ventricle Normal LV size. The estimated ejection fraction is 60 %. Normal diastology for age. No regional wall motion abnormalities noted. Right Ventricle Normal RV size. Normal systolic function. Atria Normal left atrium. Normal right atrium. No doppler evidence for ASD. Mitral Valve There is no mitral valve stenosis. No mitral valve insufficiency. Tricuspid Valve There is no tricuspid stenosis. No tricuspid valve insufficiency. Unable to estimate RV systolic pressure due to inadequate jet, pulmonary artery pressure probably normal. Aortic Valve Trisinus/trileaflet aortic valve. There is no aortic stenosis. No aortic valve insufficiency. Pulmonic Valve There is no pulmonic valvular stenosis. No pulmonic valve insufficiency. Great Vessels Normal aortic root. Pericardium/Pleural No pericardial effusion. MMode/2D Measurements & Calculations LVIDd: 3.2 cm IVSd: 1.0 cm Ao root diam: 3.0 cm LVIDs: 2.2 cm LVPWd: 1.3 cm RVDd: 2.6 cm FS: 32.1 % LAV(MOD-sp4): 28.0 ml LVAd ap4: 20.9 cm2 SV(MOD-sp4): 34.2 ml LVLd ap4: 7.2 cm EDV(MOD-sp4): 48.4 ml EDV(sp4-el): 51.2 ml LVAs ap4: 9.5 cm2 LVLs ap4: 5.5 cm ESV(MOD-sp4): 14.2 ml ESV(sp4-el): 13.9 ml EF(MOD-sp4): 70.7 % EF(sp4-el): 72.8 % SV(sp4-el): 37.3 ml LA A4 area: 13.2 cm2 LA dimension(2D): 3.5 cm RA A4 area: 12.7 cm2 Time Measurements MV dec time: 0.16 sec Doppler Measurements & Calculations MV E max keegan: 73.1 cm/sec Lat Peak E' Keegan: 13.4 cm/sec Med Peak E' Keegan: 5.9 cm/sec MV A max keegan: 59.4 cm/sec E/E' lat: 5.4 E/E' med: 12.4 MV E/A: 1.2 MV V2 max: 76.4 cm/sec Ao V2 max: 83.8 cm/sec MV max P.3 mmHg MV dec slope: 461.6 cm/sec2 Ao max P.8 mmHg MV V2 mean: 47.8 cm/sec Ao V2 mean: 59.9 cm/sec MV mean P.0 mmHg Ao mean P.6 mmHg MV V2 VTI: 25.9 cm Ao V2 VTI: 20.2 cm LV V1 max: 73.6 cm/sec PA V2 max: 75.7 cm/sec TR max keegan: 231.6 cm/sec LV V1 max P.2 mmHg PA V2 mean: 56.1 cm/sec TR max P.5 mmHg LV V1 mean P.3 mmHg LV V1 mean: 53.9 cm/sec LV V1 VTI: 16.8 cm ECHO/Echo Complete Interpretation Summary The estimated ejection fraction is 60 %. No significant valvular abnormalities noted Ordering Physician: Michael Blanchard Referring Physician: Michael Blanchard Performed By: Renata Conklin RCS
== END | disposition home or self-care (01) ==
LOC: CVS 10:52
PROVIDERS: PCP Family Medicine; Referring Provider Nurse Practitioner Family; Visit Provider Nurse Practitioner Family
DX: I10 Essential (primary) hypertension (principal); R60.0 Localized edema
CPT/HCPCS: 93306

== ENCOUNTER → 2022-10-23 | Outpatient (CLI) | payer MEDICARE, BC, SELFPAY ==
[2022-10-23 12:28] LABS: Absolute Lymphocyte Count 2.26 X10^3/uL (0.83-4.51); Absolute Neutrophil Count 3.2 X10^3/uL (2.0-7.7); Basophil# 0.05 X10^3/uL; Basophil% 0.8 % (0-1); Eosinophils% 3.2 % (0-5); Hematocrit 45.6 % (37-47); Hemoglobin 14.6 g/dL (12.0-15.0); Lymphocyte # 2.26 X10^3/ul (0.83-4.51); Lymphocyte % 35.8 % (19-41); Mean Corpuscular Hgb 31.7 pg (27.0-32.0); Mean Corpuscular Volume 98.9 fL (81-99); Mean Platelet Vol. 10.1 fl (6.2-12.0); Monocyte# 0.61 X10^3/uL; Monocyte% 9.7 % (0-10); NRBC Flagged by Analyzer 0 % (0-5); Neutrophil # 3.17 X10^3/uL (2.7-7.7); Neutrophil % 50.2 % (47-70); Platelet Count 292 K/mm3 (150-450); RBC Distribution Width CV 13.3 % (11.6-14.6); RBC Distribution Width SD 48.6 fl (35.1-43.9); Red Blood Count 4.61 M/mm3 (4.2-5.4); White Blood Count 6.3 K/mm3 (4.4-11.0)
[2022-10-23 12:52] LABS: International Normalized Ratio 1.1; Prothrombin Time (Protime)PT. 13.8 SECONDS (11.7-14.9)
[2022-10-23 13:01] LABS: ALB/GLOB Ratio 0.8 RATIO (0.9-2.4); AST(SGOT) 25 U/L (15-37); Alanine Aminotransfer ALT/SGPT 36 U/L (13-56); Albumin, Serum 3.5 g/dL (3.2-5.0); Alkaline Phosphatase 92 U/L (45-117); Anion Gap 5 (5-15); BUN 15 mg/dL (7-18); BUN/Creat Ratio 18.8 RATIO (10-20); Calcium,Total 9.1 mg/dL (8.5-10.1); Chloride 107 mmol/L (98-107); EST Glomerular Filtration Rate 76 mL/min (>60); Est Glom Filt Rate - Afr Amer 92 mL/min (>60); Globulin 4.6 g/dL (2.2-4.2); Glucose 107 mg/dL (74-106); Potassium 4.2 mmol/L (3.5-5.1); Protein, Total 8.1 g/dL (6.4-8.2); Sodium Level 139 mmol/L (136-145)
== END | disposition home or self-care (01) ==
LOC: BIMLAB 10:31
PROVIDERS: PCP Family Medicine; Referring Provider Nurse Practitioner Family; Visit Provider Nurse Practitioner Family
DX: Z01.818 Encounter for other preprocedural examination (principal); G35 Multiple sclerosis; R60.9 Edema, unspecified
CPT/HCPCS: 36415; 80053; 84443; 85025; 85610

== ENCOUNTER → 2023-07-09 | Outpatient (CLI) | payer MEDICARE, BC, SELFPAY ==
--- NOTE | 2023-07-09 10:55 | RAD_ITS ---
STUDY: X-RAY - LEFT KNEE REASON FOR EXAM: Female, 67 years old. Follow-up after ORIF of left femoral fracture. TECHNIQUE: 4 view(s) of the knee. COMPARISON: October 12, 2018 FINDINGS: Osteopenia. Intramedullary mila within the femur with 3 interlocking distal cancellus screws. Deformity of the shaft of the femur at the site of the previously described fracture with mature callus formation and healing. Mild osteoarthrosis of the knee. Normal soft tissues. RAD/Knee 4 or More Views IMPRESSION: Osteopenia with osteoarthrosis of the knee and medial femoral shaft fracture with uncomplicated ORIF as described. Electronically Signed: Stephan Roth MD at 15:44 EST ,
== END | disposition home or self-care (01) ==
LOC: RAD 10:42
PROVIDERS: PCP Family Medicine; Referring Provider Physician Assistant; Visit Provider Physician Assistant
DX: M25.562 Pain in left knee (principal)
CPT/HCPCS: 73564

== ENCOUNTER → 2024-05-18 | Outpatient (CLI) | payer MEDICARE, BC, SELFPAY ==
[2024-05-18 15:29] LABS: Absolute Lymphocyte Count 2.31 X10^3/uL (0.83-4.51); Absolute Neutrophil Count 4.1 X10^3/uL (2.0-7.7); Basophil# 0.07 X10^3/uL; Basophil% 0.9 % (0-1); Eosinophil# 0.59 X10^3/uL; Eosinophils% 7.6 % (0-5); Hematocrit 45.6 % (37-47); Hemoglobin 14.3 g/dL (12.0-15.0); Lymphocyte # 2.31 X10^3/ul (0.83-4.51); Lymphocyte % 29.6 % (19-41); Mean Corp Hgb Conc 31.4 g/dL (32-36); Mean Corpuscular Hgb 31.5 pg (27.0-32.0); Mean Corpuscular Volume 100.4 fL (81-99); Mean Platelet Vol. 10.4 fl (6.2-12.0); NRBC Flagged by Analyzer 0 % (0-5); Neutrophil # 4.11 X10^3/uL (2.7-7.7); Neutrophil % 52.6 % (47-70); Platelet Count 246 K/mm3 (150-450); RBC Distribution Width CV 13.3 % (11.6-14.6); RBC Distribution Width SD 49.7 fl (35.1-43.9); Red Blood Count 4.54 M/mm3 (4.2-5.4); White Blood Count 7.8 K/mm3 (4.4-11.0)
[2024-05-18 15:47] LABS: ALB/GLOB Ratio 0.7 RATIO (0.9-2.4); AST(SGOT) 31 U/L (15-37); Alanine Aminotransfer ALT/SGPT 36 U/L (13-56); Albumin, Serum 3.3 g/dL (3.2-5.0); Alkaline Phosphatase 106 U/L (45-117); Anion Gap 4 (5-15); BUN 14 mg/dL (7-18); BUN/Creat Ratio 17.2 RATIO (10-20); Calcium,Total 9.4 mg/dL (8.5-10.1); Chloride 108 mmol/L (98-107); Creatinine, Serum 0.81 mg/dL (0.55-1.02); EST Glomerular Filtration Rate 74 mL/min (>60); Est Glom Filt Rate - Afr Amer 90 mL/min (>60); Globulin 4.8 g/dL (2.2-4.2); Glucose 102 mg/dL (74-106); Potassium 5.1 mmol/L (3.5-5.1); Protein, Total 8.1 g/dL (6.4-8.2); Sodium Level 139 mmol/L (136-145)
== END | disposition home or self-care (01) ==
LOC: BIMLAB 11:56
PROVIDERS: PCP Family Medicine; Referring Provider Family Medicine; Visit Provider Family Medicine
DX: R29.898 Other symptoms and signs involving the musculoskeletal system (principal); G35 Multiple sclerosis; I82.409 Acute embolism and thrombosis of unspecified deep veins of unspecified lower extremity; R60.9 Edema, unspecified; M81.0 Age-related osteoporosis without current pathological fracture
CPT/HCPCS: 36415; 80053; 84443; 85025